=== PATIENT | female | born 1980 | race Caucasian/White ===

== ENCOUNTER → 2018-07-02 11:34 | Outpatient (CLI) | payer OTHER, SELFPAY ==
[2018-07-02 12:39] LABS: Free T3 2.7 pg/mL (2.18-3.98); T4 Free Direct 1.11 ng/dL (0.76-1.46); Thyroid Stim Hormone (TSH) 1.18 uIU/mL (0.358-3.74)
== END ==
LOC: LAB 11:36
PROVIDERS: Family Provider Family Medicine; PCP Family Medicine; Visit Provider Nurse Practitioner
DX: O99.280 Endocrine, nutritional and metabolic diseases complicating pregnancy, unspecified trimester (principal); E03.9 Hypothyroidism, unspecified; O24.419 Gestational diabetes mellitus in pregnancy, unspecified control; Z3A.00 Weeks of gestation of pregnancy not specified
CPT/HCPCS: 36415; 84439; 84443; 84481

== ENCOUNTER → 2018-07-04 08:44 | Outpatient (CLI) | payer OTHER, SELFPAY | LOC: US 08:44 | PROVIDERS: Visit Provider Nurse Practitioner | DX: O24.419 Gestational diabetes mellitus in pregnancy, unspecified control (principal); O99.280 Endocrine, nutritional and metabolic diseases complicating pregnancy, unspecified trimester; E03.9 Hypothyroidism, unspecified; E04.1 Nontoxic single thyroid nodule; Z3A.00 Weeks of gestation of pregnancy not specified | CPT/HCPCS: 76536 ==

== ENCOUNTER → 2018-07-18 13:53 | Outpatient (CLI) | payer OTHER, SELFPAY ==
[2018-07-18 15:36] LABS: Hemoglobin A1c 5.7 % (4.2-6.3)
== END ==
PROVIDERS: Visit Provider Nurse Practitioner
DX: Z86.32 Personal history of gestational diabetes (principal)
CPT/HCPCS: 36415; 83036

== ENCOUNTER → 2018-08-09 06:33 | Outpatient (CLI) | payer OTHER, SELFPAY ==
--- NOTE | 2018-08-09 08:25 | ASPS_PTH ---
PATIENT: MAYELIN QUINTANA LOC: [facility]#:[id number] AGE/SX: 45/F ROOM: RE08/09/[address]: Dr. Farhat Day MD : 1980 BED: DIS: SPEC #: [id number] RECD: 08/09/18 12:09 STATUS: KEVIN SIMPSON #: [id number] POONAM: 08/09/18 08:[address]: Farhat Day DEPT: CYTOLOGY RECD BY: Ginette Aguayo ENTERED: 08/11/18 11:25 SP TYPE: ASPIRATION OTHR DR: No Primary Care Phys Tissues: Thyroid gland, NOS Procedures: Pap Stain (control) Special Stain Group II Cytology Other HEADER OPERATION: Fine needle aspiration of right thyroid PRE-OP DIAGNOSIS: Multinodular goiter (nontoxic) E04.2 TISSUE SUBMITTED: Right thyroid 12 slides DIAGNOSIS CYTOLOGY Fine needle aspiration, right thyroid nodule (smears): Adequate for evaluation. 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 AM:wale 08/12/18 CYTOLOGY STUDY Slides are reviewed. CYTOLOGY GROSS Received are 12 smears labeled with the patient's name and designated per the requisition as right thyroid. Submitted for staining. / 08/11/18 TC:3 CPT: 75656
== END ==
PROVIDERS: Referring Provider Surgery; Visit Provider Surgery
DX: E04.2 Nontoxic multinodular goiter (principal)
CPT/HCPCS: 88161; 88313

== ENCOUNTER → 2018-09-08 10:25 | Outpatient (CLI) | payer OTHER, SELFPAY ==
[2018-09-08 12:00] LABS: Free T3 2.7 pg/mL (2.18-3.98); T4 Free Direct 1.18 ng/dL (0.76-1.46); Thyroid Stim Hormone (TSH) 2.06 uIU/mL (0.358-3.74)
== END ==
PROVIDERS: Referring Provider Nurse Practitioner; Visit Provider Nurse Practitioner
DX: E04.2 Nontoxic multinodular goiter (principal)
CPT/HCPCS: 36415; 84439; 84443; 84481

== ENCOUNTER → 2018-10-10 13:32 | Outpatient (CLI) | payer OTHER, SELFPAY ==
[2018-07-28 13:56] VITALS: BMI 43.7
[2018-09-04 05:53] VITALS: BP 136/73; PULSE 76; RESP 14; TEMP 36.6; O2SAT 100; BMI 30.8
[2018-09-04 05:54] LABS: Internal QC Validated? YES +Cl - CLEAR BKGD
[2018-09-04 05:55] LABS: Pregnancy, Urine Positive Negative
[2018-09-04 06:56] LABS: hCG Titer Quant., Serum 3063 mIU/mL (<9 non-preg)
== END ==
PROVIDERS: Anesthesiology; Referring Provider Surgery; Visit Provider Surgery
DX: Z01.818 Encounter for other preprocedural examination (principal)
CPT/HCPCS: 81025; 84702; J7120

== ENCOUNTER → 2019-09-11 12:38 | Outpatient (CLI) | payer OTHER, SELFPAY ==
--- NOTE | 2019-07-16 03:43 | HP_ITS ---
Intake Vital Signs 07/16/19 Body Mass Index (BMI) 30.8 07/16/19 Height 5 ft 8 in 07/16/19 Weight: 249 lb 1.957 oz 07/16/19 Body Mass Index (BMI) 37.8 07/16/19 Blood Pressure 104/71 07/16/19 Blood Pressure Location Rt brachial 07/16/19 Blood Pressure Position Sitting 07/16/19 Respiratory Rate 16 07/16/19 Pulse Rate 69 07/16/19 Pulse Source Monitor 07/16/19 Temperature 97.9 F 07/16/19 Temperature Source Oral 07/16/19 Pulse Ox 96 07/16/19 Oxygen Delivery Method room air Intake Visit Reasons: Update H & P/Schedule Thyroid SX [employer] Coordinator Required: No Is patient in pain?: No Allergies adhesive tape Allergy (Intermediate, Verified 07/16/19 14:09) red rash povidone-iodine [From Betadine] Allergy (Unknown, Verified 07/16/19 14:09) Unknown soap [From Betadine] Allergy (Unknown, Verified 07/16/19 14:09) Unknown Medications Levothyroxine Sodium [Synthroid] 50 mcg PO QHS 08/28/18 [History Confirmed 07/16/19] vitamin,calcium,rgezadpg-aswn-nvsen acid tablet 1 tab PO DAILY 07/16/19 [History Confirmed 07/16/19] PFSH Medical History Chronic lymphocytic thyroiditis (Acute) atypical follicular cells thyroid (Acute) Hypothyroidism (Acute) Polycystic ovarian disease (Acute) Gestational diabetes mellitus (GDM) (Inactive) Hypothyroidism (acquired) (Chronic) Surgical History Hx of cholecystectomy (Acute) Social History (Updated 07/16/19 @ 15:43 by Keena Capone PA-C) adopted: Yes Smoking Status: Never smoker alcohol intake: never substance use type: does not use caffeine: Yes what type of physical activity do you participate in: walking frequency: other details: as much as possible HPI HPI HPI: MAYELIN QUINTANA, is a 39 F who presents to the office today for HPI HPI Surgical H&P: Yes HPI: MAYELIN QUINTANA, is a 39 F who presents to the office today for an updating history and physical for an upcoming surgical procedure. Patient denies recent illnesses. Patient was scheduled for her surgical procedure and to cancel the day of because she was found to be . Patient is currently breast feeding. Patient denies previous myocardial infarction, stroke or blood clots. Patient denies previous complications with anesthesia. ROS General General: No weight change, appetite, fatigue, colon cancer, breast cancer or weakness HEENT HEENT: No difficulty swallowing, eye injury, eye surgery, swollen glands or hoarseness Endo Endocrine: Yes thyroid disease; no diabetes mellitus (Gestational DM with past ), thyroid cancer, Hair loss, heat intolerance or cold intolerance Skin Skin: No rash or changing moles Musc Musculoskeletal: No back problems, arthritis, rheumatoid arthritis, gout or joint pain Cardio Cardiovascular: No murmur, pacemaker, heart disease, atrial fibrillation, high blood pressure, heart attack, heart stent, palpitations, shortness of breat with exertion or chest pain Psych Psychiatric: No depression, anxiety or hearing voices Resp Respiratory: No shortness of breath, No sleep apnea, No cough, No COPD, No asthma, No emphysema, No wheezing Gastro Gastrointestinal: No abdominal pain, No nausea or vomiting, No diarrhea, No constipation, No blood in stool, No acid reflux, No hemorrhoids, No ulcers, No gallbladder problem (S/p Cholecystectomy), No black,tarry stools Vicente Hematologic: No blood thinners, No blood disorders, No bleeding, No anemia, No blood clots Neuro Neurologic: No system reviewed and no additional complaints, except as docu, No as per HPI, No abnormal walking, No abnormal hearing, No abnormal movements, No abnormal speech, No behavioral changes, No burning sensations, No confusion, No seizure-like activity, No unsteadiness, No dizziness, No localized weakness, No frequent falls, No headache(s), No lack of coordination, No loss of vision, No memory loss, No numbness, No other visual disturbances, No radiating pain, No restless legs, No sensory deficit, No fainting, No tingling, No tremor(s), No weakness, No other Exam Const General: cooperative, healthy appearing, comfortable, no acute distress HENMT Head: normal to inspection Eyes General: appearance normal, both eyes and all related structures Neck Neck: normal visual inspection Neck mass: No Resp Effort & Inspection: normal respiratory effort Auscultation: clear to auscultation bilaterally Cardio Rate: regular rate Rhythm: regular rhythm Heart Sounds: no murmurs GI Inspection: normal to inspection Palpation: soft Auscultation: normal bowel sounds Skin General: no rashes or lesions noted Neuro General: no focal motor deficits, CN's II-XI intact bilaterally Extrem General: normal to inspection Psych Appearance: grossly normal Affect: normal affect Assessment & Plan Problems 1. Chronic lymphocytic thyroiditis E06.[address] Day will plan to perform a right-sided thyroid lobectomy with possible conversion to total. Procedure details, risks and benefits have been explained to the patient. Patient has had the opportunity to ask and have questions answered. Patient verbally understands and agrees with the plan. Coding Level of Care Code No Charge Diagnoses Chronic lymphocytic thyroiditis E06.3 Comment Update H&P 07/16/19 1543 <Electronically signed by Keena spain PA-C> Date _ Keena Capone PA-C
[2019-07-16 14:23] VITALS: BMI 30.8
[2019-08-12 14:28] VITALS: BMI 30.8
== END ==
PROVIDERS: Referring Provider Surgery; Visit Provider Surgery
DX: Z01.818 Encounter for other preprocedural examination (principal)

== ENCOUNTER → 2020-09-14 11:28 | Outpatient (CLI) | payer OTHER, SELFPAY ==
[2020-06-14 10:07] VITALS: BMI 41.6
[2020-09-14 12:46] LABS: Hemoglobin A1c 5.6 % (3.8-5.6)
[2020-09-14 13:20] LABS: T4 Free Direct 1.27 ng/dL (0.76-1.46); Thyroid Stim Hormone (TSH) 1.01 uIU/mL (0.358-3.74)
== END ==
LOC: BIMLAB 11:29
PROVIDERS: Referring Provider Internal Medicine Endocrinology, Diabetes & Metabolism; Visit Provider Internal Medicine Endocrinology, Diabetes & Metabolism
DX: E03.9 Hypothyroidism, unspecified (principal); R73.09 Other abnormal glucose
CPT/HCPCS: 36415; 83036; 84439; 84443

== ENCOUNTER → 2021-03-10 16:03 | Outpatient (CLI) | payer OTHER, SELFPAY ==
[2020-09-15 08:14] VITALS: BMI 40.6
--- NOTE | 2021-03-10 16:06 | US_ITS ---
STUDY: THYROID ULTRASOUND REASON FOR EXAM: Female, 40 years old. Thyroid nodule. Jermaine''s thyroiditis. TECHNIQUE: Ultrasound evaluation of the thyroid was performed with real-time and static matta-scale imaging. COMPARISON: 07/04/2018. FINDINGS: RIGHT LOBE: The right lobe of the thyroid gland measures 5.5 x 1.8 x 1.7 cm. There is a heterogeneous echotexture. There are no demonstrated solid, cystic or complex lesions. Normal vascularity on DOPPLER imaging. LEFT LOBE: The left lobe of the thyroid gland measures 5.2 x 2.2 x 1.7 cm cm. There is a heterogeneous echotexture. There are no demonstrated solid, cystic or complex lesions. Normal vascularity on DOPPLER imaging. ISTHMUS: The isthmus measures 0.3 cm. The regional lymph nodes are normal. US/Thyroid IMPRESSION: Heterogenous thyroid. The areas described as masses on the prior studies appear to be areas of heterogeneity without distinct mass. Electronically Signed: Shon Atkins DO at 17:15 EDT Tel [phone], Service support ,
== END ==
LOC: US 16:04
PROVIDERS: Referring Provider Internal Medicine Endocrinology, Diabetes & Metabolism; Visit Provider Internal Medicine Endocrinology, Diabetes & Metabolism
DX: E04.1 Nontoxic single thyroid nodule (principal)
CPT/HCPCS: 76536

== ENCOUNTER → 2022-05-18 | Outpatient (CLI) | payer BC, SELFPAY ==
[2022-05-18 12:47] LABS: AST(SGOT) 14 U/L (15-37); Alanine Aminotransfer ALT/SGPT 23 U/L (13-56); Albumin, Serum 3.6 g/dL (3.2-5.0); Alkaline Phosphatase 95 U/L (45-117); Anion Gap 5 (5-15); BUN 9 mg/dL (7-18); BUN/Creat Ratio 14.7 RATIO (10-20); Calcium,Total 8.4 mg/dL (8.5-10.1); Chloride 106 mmol/L (98-107); Cholesterol 140 mg/dL (200); Creatinine, Serum 0.61 mg/dL (0.55-1.02); EST Glomerular Filtration Rate 115 mL/min (>60); Est Glom Filt Rate - Afr Amer 139 mL/min (>60); Globulin 3.7 g/dL (2.2-4.2); Glucose 120 mg/dL (74-106); High Density Lipoprotein 37 mg/dL; Potassium 3.9 mmol/L (3.5-5.1); Protein, Total 7.3 g/dL (6.4-8.2); Sodium Level 139 mmol/L (136-145); T4 Free Direct 1.11 ng/dL (0.76-1.46); Thyroid Stim Hormone (TSH) 2.18 uIU/mL (0.358-3.74); Triglycerides 89 mg/dL; Very Low Density Lipoprotein 18 mg/dL (5-40)
== END | disposition home or self-care (01) ==
LOC: BIMLAB 09:08
PROVIDERS: Referring Provider Internal Medicine Endocrinology, Diabetes & Metabolism; Visit Provider Internal Medicine Endocrinology, Diabetes & Metabolism
DX: E03.9 Hypothyroidism, unspecified (principal); E28.2 Polycystic ovarian syndrome; E06.3 Autoimmune thyroiditis
CPT/HCPCS: 36415; 80053; 80061; 83036; 84439; 84443

== ENCOUNTER → 2023-06-28 | Outpatient (CLI) | payer BC, SELFPAY ==
[2023-06-28 10:20] LABS: Basophil# 0.07 X10^3/uL; Basophil% 0.8 % (0-1); Eosinophil# 0.62 X10^3/uL; Eosinophils% 7.2 % (0-5); Hematocrit 45.4 % (37-47); Hemoglobin 14.4 g/dL (12.0-15.0); Lymphocyte % 26.8 % (19-41); Mean Corp Hgb Conc 31.7 g/dL (32-36); Mean Corpuscular Hgb 25.7 pg (27.0-32.0); Mean Corpuscular Volume 80.9 fL (81-99); Mean Platelet Vol. 10.1 fl (6.2-12.0); Monocyte# 0.55 X10^3/uL; Monocyte% 6.4 % (0-10); NRBC Flagged by Analyzer 0 % (0-5); Neutrophil # 5.02 X10^3/uL (2.7-7.7); Neutrophil % 58.5 % (47-70); Platelet Count 342 K/mm3 (150-450); RBC Distribution Width CV 14.1 % (11.6-14.6); RBC Distribution Width SD 41.3 fl (35.1-43.9); Red Blood Count 5.61 M/mm3 (4.2-5.4); White Blood Count 8.6 K/mm3 (4.4-11.0)
[2023-06-28 11:03] LABS: ALB/GLOB Ratio 1.1 RATIO (0.9-2.4); AST(SGOT) 12 U/L (15-37); Alanine Aminotransfer ALT/SGPT 22 U/L (13-56); Albumin, Serum 4.1 g/dL (3.2-5.0); Alkaline Phosphatase 90 U/L (45-117); Anion Gap 6 (5-15); BUN 11 mg/dL (7-18); Calcium,Total 8.9 mg/dL (8.5-10.1); Chloride 106 mmol/L (98-107); Cholesterol 138 mg/dL (200); Creatinine, Serum 0.61 mg/dL (0.55-1.02); EST Glomerular Filtration Rate 115 mL/min (>60); Est Glom Filt Rate - Afr Amer 139 mL/min (>60); Globulin 3.8 g/dL (2.2-4.2); Glucose 90 mg/dL (74-106); High Density Lipoprotein 41 mg/dL; Protein, Total 7.9 g/dL (6.4-8.2); Sodium Level 139 mmol/L (136-145); T4 Free Direct 1.33 ng/dL (0.76-1.46); Thyroid Stim Hormone (TSH) 1.35 uIU/mL (0.358-3.74); Triglycerides 82 mg/dL; Very Low Density Lipoprotein 16 mg/dL (5-40)
== END | disposition home or self-care (01) ==
LOC: LAB 09:48
PROVIDERS: PCP Internal Medicine; Referring Provider Internal Medicine Endocrinology, Diabetes & Metabolism; Visit Provider Internal Medicine Endocrinology, Diabetes & Metabolism
DX: E03.9 Hypothyroidism, unspecified (principal); E11.9 Type 2 diabetes mellitus without complications; E66.9 Obesity, unspecified
CPT/HCPCS: 36415; 80053; 80061; 84439; 84443; 85025

== ENCOUNTER → 2024-08-20 | Outpatient (CLI) | payer BC, SELFPAY ==
[2024-08-21 11:03] LABS: Vitamin D,25 Hydroxy 20.6 ng/mL
== END | disposition home or self-care (01) ==
LOC: BIMLAB 10:29
PROVIDERS: PCP Internal Medicine; Referring Provider Internal Medicine; Visit Provider Internal Medicine
DX: E03.9 Hypothyroidism, unspecified (principal); E55.9 Vitamin D deficiency, unspecified
CPT/HCPCS: 36415; 82306; 84443

== ENCOUNTER → 2025-08-27 | Outpatient (CLI) | payer BC, SELFPAY ==
[2025-08-27 10:02] LABS: Hematocrit 40.9 % (37-47); Hemoglobin 13.6 g/dL (12.0-15.0); Immature Granulocytes Count 0.020 X10^3/uL (0.0-0.0); Mean Corp Hgb Conc 33.3 g/dL (32-36); Mean Corpuscular Volume 82.0 fL (81-99); Mean Platelet Vol. 9.7 fl (6.2-12.0); NRBC Flagged by Analyzer 0 % (0-5); Platelet Count 285 K/mm3 (150-450); RBC Distribution Width CV 13.8 % (11.6-14.6); RBC Distribution Width SD 40.7 fl (35.1-43.9); Red Blood Count 4.99 M/mm3 (4.2-5.4); White Blood Count 6.8 K/mm3 (4.4-11.0)
--- OUTSIDE RECORDS SUMMARY | 2025-08-27 10:14 | XMS RPT_ITS | CCD ---
Author Organization [facility] Care Team Providers Care Wheel Assembler Name Role Phone Unavailable Primary Care Provider Unavailabl e Dr. Edil Dean Primary Care Provider Dr. Edil Dean Referring Provider [phone] FLAVIO Hlil Attending Provider [phone] Edil Dean MD Primary Care Provider EDIL DEAN Primary Care Unavailable NICOL GARCIA DO Primary Care Physician ALYSE STEIN Attending Unavail able RADHA DO NICOL R Primary Care Unavailable ALYSE STEIN Attending Unavail able NICOL GARCIA DO R Primary Care Unavailable Dr. Edil Dean MD Primary Care Provider [phone] Dr. Edil Dean MD Referring Provider Ton Ware Attending Provider [phone] Ton Ware Attending Unavailable Edil Dean Primary Care Unavailable Edil Dean Referring Unavailable Olga Quintanilla Attending Unavailable Edil Dean Primary Care Unavailable Edil Dean Referring Unavailable Allergies Allergy Classification Reported Allergen(s) Allergy Type Date of Onset Reaction(s) Facility (4 sources) Adhesive Tape; Translations: [adhesive tape] Allergy to substance 09-15-2020 [facility] (8 sources) Povidone-Iodine; Translations: [POVIDONE-IODINE ] Drug Allergy 07-27-2019 [facility] Work Phone: Comment on above: skin broke out in hi ves as soon as applied for preop scrub (6 sources) raspberry extract; Translations: [RASPBERRY] Drug Allergy 07-27-2019 [facility] Work Phone: (4 sources) soap; Translations: [soap] Allergy to substance 09-15-2020 Unknown [facility] (3 sources) Aloe Extract; Translations: [ALOE] Drug Allergy 07-27-2019 [facility] Work Phone: (2 sources) aloe vera topical; Translations: [aloe vera topical] Allergy to substance red rash [facility] (2 sources) Raspberries 2 Food allergy [facility] Comment on above: hives (1 source) Povidone-Iodine Drug Allergy 08-24-2025 [facility] Repository (1 source) raspberry extract Drug Allergy 08-24-2025 [facility] Repository Medications Current Medications Medication Drug Class(es) Dates Sig (Normalized) Sig (Original) calcium carbonate 1500 mg oral tablet (3 sources) Start: 08-06-2019 take 1 tablet by mouth once daily Calcium Carbonate 600 MG tablet Active 600 mg PO DAILY August 06, 2019 12:00am Calcium Carbonate / vitamin D3 (2 sources) CALCIUM CARBONATE/VITAMIN D3 (CALCIUM CHEWABLE PLUS ORAL) Take 1,200 mg by mouth. Active CALCIUM CARBONAT E/VITAMIN D3 (CALCIUM CHEWABLE PLUS ORAL) Take 1,200 mg by mouth. 0 Active Comment on above: Take 1,200 mg by jackson . cholecalciferol 0.025 mg oral tablet (7 sources) Vitamin D Start: 09-17-20 22 take 1 tablet by mouth once daily Cholecalciferol (Vitamin D3) 25 mcg (1,000 unit) tablet Active 25 ug PO DAILY September 17, 2022 1:00am Start: 08-06-2019 End: 09-17-2022 take 1 capsule by mouth once daily Cholecalciferol (Vitamin D3) 1,000 UNIT capsule Discontinued 1000 U PO DAILY August 06, 2019 12:00am September 17, 2022 10:49am Comment on above: Take 1,000 Units by mouth once daily. doxycycline hyclate 100 mg oral tablet (1 source) Tetracycline-cla ss Drug Start: 4 End: 4 take 1 tablet by mouth twice daily doxycycline (VIBRA-TABS) 100 mg tablet Take 1 tablet by mouth two times a day for 7 days. 14 tablet 08/31/2024 09/07/2024 Active levothyroxine (20 sources) l-Thyroxine Start: 5 take 1 dose by mouth once daily levothyroxine Dose : 137 mcg =, Oral, qDay, 0 Refill(s) Start Date: 03/04/25 Status: Ordered Repeat number: 1 Start: 06-14-2020 End: 08-06-2023 take 1 tablet by mouth once daily Levothyroxine 137 mcg tablet Active 137 ug PO DAILY 90 August 06, 2023 9:48am Start: 04-17-2017 End: 06-14-2020 take 1 tablet by mouth at bedtime Levothyroxine 50 MCG tablet Discontinued 50 ug PO AT BEDTIME August 28, 2018 3:18pm June 14, 2020 9:46am Comment on above: Take 1 tablet by jackson th once daily. KYLE TAKE 1 TABLET EVERY DAY Take 1 tablet by jackson th once daily. MOUNJARO 15 mg/0.5 mL pen injector (1 source) Start: 08-25-20 24 inject 15 mg by subcutaneous injection every week MOUNJARO 15 mg/0.5 mL pen injector INJECT 15 MG (0.5 ML) SUBCUTANEOUSLY EVERY WEEK 08/25/2024 Active Multivitamin (Daily Multi-Vitamin) tablet (2 sources) Start: 09-17-20 22 Multivitamin (Daily Multi-Vitamin) tablet Active 1 {tbl} PO DAILY September 17, 2022 1:00am Start: 09-17-2022 take 1 tablet by jackson th once daily Multivitamin (Daily Multi-Vitamin) tablet Active 1 TABLET PO DAILY September 17, 2022 1:00am multivitamin, (2 sources) Start: 04-07-2019 take 1 tablet by mouth once daily multivitamin, Dose = 1 tab(s), Oral, Daily, 0 Refill(s) Start Date: 04/07/19 Status: Ordered Repeat number: 1 MV-MN/IRON FUM/FA/OMEGA3,6,9#3 (WOMEN'S MULTI ORAL) (2 sources) MV-MN/IRON FUM/FA/OMEGA3,6,9#3 (WOMEN'S MULTI ORAL) Take by mouth once daily. Active MV-MN/IRON FUM/F A/OMEGA3,6,9#3 (WOMEN'S MULTI ORAL) Take by mouth once daily. 0 Active Comment on above: Take by mouth once d aily. progesterone 100 mg oral capsule (2 sources) Progesterone Start: progesterone 100 mg oral capsule Dose : 100 mg = 1 cap(s), Oral, qHS, # 30 cap(s), 1 Refill(s), Pharmacy: [facility]/pharmacy #[id number], Secondary amenorrhea Unsure of LMP (last menstrual period) as reason for ultrasound scan, 172.5, cm, 03/04/25 11:09:00 EDT, Height Start Date: 03/04/25 Status: Ordered Quantity: 30.0 Unit: cap(s) Repeat number: 2 Indications: Secondary amenorrhea; Encounter for screening for uncertain dates; sulfamethoxazole 800 mg / trimethoprim 160 mg oral tablet (1 source) Dihydrofolate Reductase Inhibitor Antibacterial, Sulfonamide Antimicrobial Start: End: take 1 tablet by mouth twice daily sulfamethoxazole-tri methoprim (BACTRIM DS) 800-160 mg per tablet Take 1 tablet by mouth twice daily for 7 days. 14 tablet 0 07/27/2022 08/03/2022 Active Comment on above: Take 1 tablet by jackson twice daily for 7 days. Tirzepatide (Mounjaro) 12.5 mg/0.5 mL pen injector (4 sources) Start: Tirzepatide (Mounjaro) 12.5 mg/0.5 mL pen injector Active 12.5 mg SC EVERY WEEK 2 May 12, 2025 12:58pm Diabetes mellitus Type 2 diabetes mellitus without complications Start: 08-20-2024 End: 05-12-2025 Tirzepatide (Mounjaro) 12.5 mg/0.5 mL pen injector Discontinued 12.5 mg SC EVERY WEEK 2 August 20, 2024 10:33am May 12, 2025 12:59pm Diabetes mellitus Type 2 diabetes mellitus without complications Start: 01-01-2024 End: 08-20-2024 Tirzepatide (Mounjaro) 12.5 mg/0.5 mL pen injector Discontinued 12.5 mg SC EVERY WEEK 2 3 January 01, 2024 1:00am August 20, 2024 10:33am Diabetes mellitus Type 2 diabetes mellitus without complications Start: 08-06-2023 End: 12-09-2023 Tirzepatide (Mounjaro) 12.5 mg/0.5 mL pen injector Discontinued 12.5 mg SC EVERY WEEK 6 3 August 06, 2023 12:00am December 09, 2023 9:06am Vitamin D and K oral tablet (2 sources) Start: 03-04-2025 take 1 tablet by mouth once Vitamin D and K oral tablet 0 Refill(s) Start Date: 03/04/25 Status: Ordered Repeat number: 1 Completed/Discontinued Medications Medication Drug Class(es) Dates Sig (Normalized) Sig (Original) Dulaglutide (12 sources) GLP-1 Receptor Agonist Start: 01-07-2023 End: 03-25-2023 Dulaglutide (Trulicity) 4.5 mg/0.5 mL pen injector Discontinued 4.5 mg SC EVERY WEEK 6 1 January 07, 2023 1:00am March 25, 2023 8:02am Start: 01-07-2023 End: 03-25-2023 Dulaglutide (Trulicity) 4.5 mg/0.5 mL pen injector Discontinued 4.5 MG SC EVERY WEEK 6 January 07, 2023 1:00am March 25, 2023 8:02am Start: 11-30-2022 End: 01-07-2023 Dulaglutide (Trulicity) 3 mg /0.5 mL pen injector Discontinued 3 mg SC EVERY WEEK 2 3 November 30, 2022 12:08pm January 07, 2023 11:13am Start: 11-30-2022 End: 01-07-2023 Dulaglutide (Trulicity) 3 mg /0.5 mL pen injector Discontinued 3 MG SC EVERY WEEK 2 November 30, 2022 12:08pm January 07, 2023 11:13am Start: 09-21-2022 End: 11-30-2022 Dulaglutide (Trulicity) 3 mg /0.5 mL pen injector Discontinued 3 mg SC EVERY WEEK 2 3 September 21, 2022 1:00am November 30, 2022 12:08pm Start: 09-21-2022 End: 11-30-2022 Dulaglutide (Trulicity) 3 mg /0.5 mL pen injector Discontinued 3 MG SC EVERY WEEK 2 September 21, 2022 1:00am November 30, 2022 12:08pm Start: 07-27-2022 End: 09-21-2022 Dulaglutide (Trulicity) 1.5 mg/0.5 mL pen injector Discontinued 1.5 mg SC EVERY WEEK 2 3 July 27, 2022 12:00am September 21, 2022 4:55pm Start: 07-05-2022 End: 07-27-2022 Dulaglutide (Trulicity) 0.75 mg/0.5 mL pen injector Discontinued 0.75 mg SC EVERY WEEK 2 3 July 05, 2022 12:00am July 27, 2022 1:35pm Recent onset of diabetes mellitus Obesity Type 2 diabetes mellitus without complications Morbid (severe) obesity due to excess calories Body mass index [BMI] 40.0-44.9, adult Comment on above: INJECT 0.75 MG (0.5 ML) SUBCUTANEOUSLY EVERY WEEK metFORMIN hydrochloride 1000 mg oral tablet (10 sources) Biguanide Start: 07-02-20 End: 01-08-20 take 1 tablet by mouth once daily Metformin 1,000 mg tablet Discontinued 1000 mg PO DAILY 30 2022 2:50pm January 07, 2023 11:15am Start: 06-16-2020 End: 2022 take 1 tablet by mouth twice daily Metformin 1,000 mg tablet Discontinued 1000 mg PO TWICE A DAY 60 0 August 31, 2021 8:29am 2022 2:51pm Comment on above: 1000 MG ORALLY DAILY Prenat.Vits,Juan,Mi k-Avrs-Qkewm (2 sources) Start: 07-16-2019 End: 09-17-2022 take 1 tablet by mouth once daily Prenat.Vits,Juan,Min-Ir on-Folic Discontinued 1 TABLET PO DAILY July 16, 2019 12:00am September 17, 2022 10:53am Start: 07-16-2019 take 1 tablet by jackson th once daily Prenat.Vits,Juan,Tie-Wotf-Pbkxe Active 1 TABLET PO DAILY July 16, 2019 12:00am Prenat.Vits,Juan,Wdk-Qvrr-Cby ic tablet (1 source) Start: 07-16-2019 End: 09-17-2022 Prenat.Vits,Juan,Aka-Mnpx-Isv ic tablet Discontinued 1 {tbl} PO DAILY July 16, 2019 12:00am September 17, 2022 10:53am Tirzepatide (Mounjaro) 10 mg /0.5 mL pen injector (4 sources) Start: 04-24-2023 End: 04-25-2023 Tirzepatide (Mounjaro) 10 mg /0.5 mL pen injector Discontinued 10 mg SC EVERY WEEK 2 3 April 24, 2023 12:30pm April 25, 2023 3:59pm Recent onset of diabetes mellitus Type 2 diabetes mellitus without complications Start: 04-24-2023 End: 04-25-2023 Tirzepatide (Mounjaro) 10 mg /0.5 mL pen injector Discontinued 10 MG SC EVERY WEEK 2 April 24, 2023 12:30pm April 25, 2023 3:59pm Start: 03-25-2023 End: 04-24-2023 Tirzepatide (Mounjaro) 10 mg /0.5 mL pen injector Discontinued 10 mg SC EVERY WEEK 2 3 March 25, 2023 12:00am April 24, 2023 12:30pm Recent onset of diabetes mellitus Type 2 diabetes mellitus without complications Start: 03-25-2023 End: 04-24-2023 Tirzepatide (Mounjaro) 10 mg /0.5 mL pen injector Discontinued 10 MG SC EVERY WEEK 2 March 25, 2023 12:00am April 24, 2023 12:30pm Tirzepatide (Mounjaro) 15 mg/0.5 mL pen injector (2 sources) Start: 12-12-2023 End: 08-20-2024 Tirzepatide (Mounjaro) 15 mg /0.5 mL pen injector Discontinued 15 mg SC EVERY WEEK 6 3 December 12, 2023 4:09pm August 20, 2024 10:33am Diabetes mellitus Type 2 diabetes mellitus without complications Start: 12-09-2023 End: 12-12-2023 Tirzepatide (Mounjaro) 15 mg /0.5 mL pen injector Discontinued 15 mg SC EVERY WEEK 6 3 December 09, 2023 1:00am December 12, 2023 4:09pm Diabetes mellitus Type 2 diabetes mellitus without complications Tirzepatide (Mounjaro) 2.5 mg/0.5 mL pen injector (2 sources) Start: 2022 End: 07-05-2022 Tirzepatide (Mounjaro) 2.5 mg/0.5 mL pen injector Discontinued 2.5 mg SC EVERY WEEK 2 01 12July 02, 2022 12:00am July 05, 2022 9:34am Start: 2022 End: 07-05-2022 Tirzepatide (Mounjaro) 2.5 m g/0.5 mL pen injector Discontinued 2.5 MG SC EVERY WEEK 2 2022 12:00am July 05, 2022 9:34am Tirzepatide (Mounjaro) 7.5 mg/0.5 mL pen injector (3 sources) Start: 12-30-2023 End: 08-20-2024 Tirzepatide (Mounjaro) 7.5 mg/0.5 mL pen injector Discontinued 7.5 mg SC EVERY WEEK 2 December 30, 2023 1:00am August 20, 2024 10:06am Start: 04-25-2023 End: 08-06-2023 Tirzepatide (Mounjaro) 7.5 m g/0.5 mL pen injector Discontinued 7.5 mg SC EVERY WEEK 2 5 April 25, 2023 12:00am August 06, 2023 9:57am Start: 04-25-2023 Tirzepatide (M ounjaro) 7.5 mg/0.5 mL pen injector Active 7.5 MG SC EVERY WEEK 2 April 25, 2023 12:00am Problems Active Problems Problem Classification Problem Date Documented Da te Episodic/Chronic Administrative/social admission (3 sources) Patient encounter status; Translations: [Encounter for pre-employment examination] 10-09-2022 Episodic Diabetes mellitus without complication (5 sources) Newly diagnosed diabetes; Translations: [Type 2 diabetes mellitus without complications] Onset: 05-12-2025 06-20-2020 Chronic Diabetes mellitus without complication (3 sources) Prediabetes; Translations: [Prediabetes] 09-13-2022 Episodic Diabetes or abnormal glucose tolerance complicating ; childbirth; or the puerperium (11 sources) Gestational diabetes mellitus; Translations: [Gestational diabetes mellitus in , unspecified control] Onset: 11-01-2016 11-01-2016 Episodic Menstrual disorders (2 sources) Secondary amenorrhea; Translations: [Secondary amenorrhea] Onset: 03-04-2025 Chronic Nutritional deficiencies (3 sources) Vitamin D deficiency; Translations: [Vitamin D deficiency, unspecified] Onset: 05-12-2025 05-12-2025 Chronic Other complications of (1 source) Thyroid dysfunction during - baby not yet delivered; Translations: [Endocrine, nutritional and metabolic diseases complicating , unspecified trimester] 04-10-2016 Episodic Other complications of (1 source) Thyroid dysfunction during , childbirth and the puerperium; Translations: [Endocrine, nutritional and metabolic diseases complicating , unspecified trimester] 04-10-2016 Episodic Other endocrine disorders (3 sources) Polycystic ovary; Translations: [Polycystic ovarian syndrome] 07-16-2019 Chronic Other endocrine disorders (2 sources) Polycystic ovary syndrome; Translations: [Polycystic ovarian syndrome] 11-01-2016 Chronic Other nutritional; endocrine; and metabolic disorders (2 sources) Body mass index 30+ - obesity; Translations: [Body mass index (BMI) 38.0-38.9, adult] 11-01-2016 Chronic Other nutritional; endocrine; and metabolic disorders (2 sources) Obesity; Translations: [Obesity, unspecified] 01-07-2023 Chronic Other nutritional; endocrine; and metabolic disorders (1 source) Other obesity due to excess calories; Translations: [Other obesity due to excess calories] Onset: 05-12-2025 Chronic Other nutritional; endocrine; and metabolic disorders (1 source) Body mass index (BMI) 34.0-34.9, adult; Translations: [Body mass index [BMI] 34.0-34.9, adult] Onset: 05-12-2025 Chronic Other and delivery including normal (2 sources) Onset: 03-04-2025 03-04-2025 Episodic Comment on above: unsure of LMP, think s possibly at beginning of January. Other screening for suspected conditions (not mental disorders or infectious disease) (3 sources) Encounter for screening for uncertain dates; Translations: [Encounter for other screening for malignant neoplasm of breast] Onset: 03-04-2025 Episodic Other upper respiratory infections (1 source) Bacterial sinusitis; Translations: [Chronic sinusitis, unspecified] 08-31-2024 Chronic Skin and subcutaneous tissue infections (1 source) Cellulitis of right upper limb; Translations: [Cellulitis of right upper limb] Episodic Thyroid disorders (18 sources) Thyroid nodule; Translations: [Nontoxic single thyroid nodule] Onset: 05-12-2025 04-10-2016 Chronic Comment on above: Jermaine's Unclassified (2 sources) Breast feeding (infant) (observable entity) 04-28-2019 Comment on above: System added from do cumentation. Breast feeding Status documented as Yes on Admission Past or Other Problems Problem Classification Problem Date Documented Da te Episodic/Chronic Biliary tract disease (2 sources) Biliary calculus Onset: 01-18-2015 01-26-2015 Episodic Unclassified (3 sources) atypical follicular cells thyroid 06-02-2022 Results Test Name Value Interpretation Reference Range Facility Internal Medicine Office Vis ito 08-24-2025 Internal Medicine Office Visit [facility] Internal [facility] [address] [place] [address] [place] [address] OFFICE VISIT Date of Service: 08/24/25 MR#: [id number] Acct: [id number] Name: MIKEY OAKES Rep #: [id number] : 1980 Provider: LATISHA tena Age/Sex: 45/F Location: [facility] Status: Signed Intake Vital Signs 05/12/25 12:37 08/24/25 10:04 Height 5 ft 8 in 5 ft 8 in Weight: 199 lb 2 oz 196 lb BMI 30.2 29.7 BP 126/78 H 106/68 Blood Pressure Location Lt brachial Lt brachial Position Sitting Sitting Respiration 16 16 Pulse 70 69 Pulse Source Monitor Monitor Temp 97.2 F L 98.9 F Temp Source Temporal Temporal Pulse Oximetry (%) 99 99 Oxygen Delivery Method room air room air Intake Visit Reasons: Annual Chief Complaint: fu Stamp Presser Required: No Is patient in pain?: No Allergies adhesive tape Allergy (Intermediate, Verified 08/24/25 09:49) red rash raspberry Allergy (Intermediate, Verified 08/24/25 09:49) Hives povidone-iodine (From Betadine) Allergy (Unknown, Verified 08/24/25 09:49) Unknown Medications ???Medication ???Instructions ???Recorded ???Confirmed ???Type calcium carbonate 600 mg PO DAILY 08/06/19 08/24/25 History multivitamin (Daily Multi-Vitamin 1 tab PO DAILY 09/17/22 08/24/25 History tablet) levothyroxine 137 mcg tablet 137 mcg PO DAILY #90 tabs 08/06/23 08/24/25 Rx cholecalciferol (vitamin D3) 25 5,000 unit PO DAILY 08/24/2508/24 History mcg (1,000 unit) tablet tirzepatide 12.5 mg/0.5 mL 12.5 mg (0.5 mL) subcut QWEEK 90 1 08/24/25 Rx subcutaneous pen injector days #6 mL (Mounjaro) Have you fallen in the past year?: No Nurse's Note: Pt needs synthroid and mounjaro refilled. Requested 90 days. Pt will wait closer to september to get flu shot. 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 Gestational diabetes mellitus (GDM) Hypothyroidism (acquired) Polycystic ovarian disease Surgical History (Updated 08/24/25 @ 10:00 by Roshni Junior MA) Normal Pap smear H/O wisdom tooth extraction Hx of cholecystectomy Family History (Updated 08/24/25 @ 10:01 by Roshni Junior MA) Other Adopted Social History (Updated 08/24/25 @ 10:03 by Roshni Junior MA) adopted: Yes household members: spouse and children number of children: 3 current occupational status: employed 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 She is due for some routine blood work and screening. She states she will have bloodwork completed tomorrow. She plans to get the flu shot next month, and isn't due for any further immunizations. She doesn't smoke and needs refills today. She reports she is eating healthy and is trying to stay active. She was previously following with endocrinology for her thyroid and diabetes, but these are now managed by primary care.. She has been taking her medication as prescribed without any problems. She is trying to monitor her carbohydrate and sugar intake. The patient doesn't monitor her sugars at home regularly. Her last A1c was 5.3. She states she is taking her Mounjaro without any adverse effects. States she has lost approximately 100 pounds while taking this medication. The patient takes her thyroid medication first thing in the morning before anything else. She denies any palpitations or feelings of fatigue at this time. She states she feels best when her TSH is around 1. She has no further concerns or questions at this time ROS Const Constitutional: No body ache, chills, excessive sweating, fatigue, fever(s), frequent falls, headache(s), snoring, weakness, sleep problems or change in appetite Eyes Eyes: No blurry vision, change in vision, eye pain or Light sensitivity ENT ENT: No abnormal hearing, ear or mastoid pain, tinnitus, nasal congestion, headache(s), neck pain or sore throat Resp Respiratory: No cough, shortness of breath, snoring or wheezing Cardio Cardiology: No chest pain at rest, chest pain with exertion, excessive sweating, shortness of breath, dyspnea on exertion, lightheadedness, orthopnea or palpitations Gastro GI: No abdominal pain, change in (more content not included)... Normal [facility] Internal Medicine Office Vis anderson 05-12-2025 Internal Medicine Office Visit [place] [facility] [place] [address] [place] [address] OFFICE VISIT Date of Service: 05/12/25 MR#: [id number] Acct: [id number] Name: MIKEY OAKES Rep #: [id number] : 1980 Provider: FLAVIO Grossman Age/Sex: 44/F Location: [facility] Status: Signed Intake Vital Signs 08/20/24 10:01 05/12/25 12:37 Height 5 ft 8 in 5 ft 8 in Weight: 214 lb 199 lb 2 oz BMI 32.5 30.2 BP 110/68 126/78 H Blood Pressure Location Lt brachial Lt brachial Position Sitting Sitting Respiration 14 16 Pulse 71 70 Pulse Source Monitor Monitor Temp 98.1 F 97.2 F L Temp Source Temporal Temporal Pulse Oximetry (%) 99 99 Oxygen Delivery Method room air room air Intake Visit Reasons: MED FOLLOW UP Chief Complaint: fu Stamp Presser Required: No Accompanied by: Self Is patient in pain?: No Allergies adhesive tape Allergy (Intermediate, Verified 05/12/25 12:30) red rash raspberry Allergy (Intermediate, Verified 05/12/25 12:30) Hives povidone-iodine (From Betadine) Allergy (Unknown, Verified 05/12/25 12:30) Unknown soap (From Betadine) Allergy (Unknown, Verified 05/12/25 12:30) Unknown Medications ???Medication ???Instructions ???Recorded ???Confirmed ???Type calcium carbonate 600 mg PO DAILY 08/06/19 05/12/25 History cholecalciferol (vitamin D3) 25 25 mcg PO DAILY 09/17/22 05/12/25 History mcg (1,000 unit) tablet multivitamin (Daily Multi-Vitamin 1 tab PO DAILY 09/17/22 05/12/25 History tablet) levothyroxine 137 mcg tablet 137 mcg PO DAILY #90 tabs 08/06/23 05/12/25 Rx tirzepatide 12.5 mg/0.5 mL 12.5 mg (0.5 mL) subcut QWEEK #2 m L 05/12/25 05/12/25 Rx subcutaneous pen injector (Gideon) Nurse's Note: needs refills [facility] Medical History Diabetes Raynaud phenomenon Obesity 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 Gestational diabetes mellitus (GDM) Hypothyroidism (acquired) Polycystic ovarian disease Surgical History H/O wisdom tooth extraction Hx of cholecystectomy Family History Other Adopted Social History adopted: Yes household members: spouse and children number of children: 3 current occupational status: employed 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 She has no concerns or complaints at this time. Patient used to see endocrinology but was transferred back to us as [facility] and felt she was fine to monitor here. She does not check her sugar She states that her diet is good She is getting regular exercise walking regularly with occasional swimming She does see eye doctor regularly No nicotine No ETOH Very little caffeine intake. She is compliant with her thyroid medication taking this "at the crack of rachel away from her other medications / intake) ROS Const Constitutional: No body ache, excessive sweating, fatigue, fever(s), frequent falls, headache(s), snoring, weakness, weight change, sleep problems or change in appetite Eyes Eyes: No blurry vision, change in vision, eye pain or Light sensitivity ENT ENT: No abnormal hearing, ear or mastoid pain, tinnitus, nasal congestion, headache(s), neck pain or sore throat Resp Respiratory: No cough, shortness of breath, snoring or wheezing Cardio Cardiology: No chest pain at rest, chest pain with exertion, excessive sweating, shortness of breath, dyspnea on exertion, lightheadedness, orthopnea or palpitations Gastro GI: No abdominal pain, change in bowel habits, constipation, cramping, diarrhea, nausea/dyspepsia or vomiting Genitourinary-Female : No burning urination, painful urination, urinary incontinence, urinary frequency, blood in urine, abnormal periods or pelvic pain Musc Musculoskeletal: No abnormal gait, joint pain, back pain, limited range of motion, neck pain, numbness, stiffness, tingling or Arthritis Skin Skin: No dry skin, redness, lesions, itchy eyes, rash or wounds Neuro Neurology: No abnormal gait, abnormal hearing, abnormal speech, dizziness, weakness, frequent falls, headache(s), memory loss, (more content not included)... Normal [facility] VARISon 03-11-[address] Positive Normal [facility] Comment on above: Result Comment: INTE RPRETATION OF VARICELLA IMMUNE STATUS IgG BY EIA: Negative: No detectable VZV IgG antibody. Positive: VZV IgG antibody Detected. If clinically indicated, order Varicella IgM to rule out recent infection. Equivocal: Equivocal for antibodies to VZV. Suggest repeat testing in 10-14 days. Performed By: #### N GPCR1, CTPCR #### [facility] [address] [place] [address] Director Industrial Cytology Reporton 2024 Director Industrial Cytology Report . Pathology Reports Accession: Collected Date/Time: Received Date/Time: Pathologist: [id number] 03/04/2025 12:01 EDT 03/04/2025 18:00 EDT Director Industrial Cytology Report SPECIMEN: Specimen Description: Liquid Prep w/ HPV Specimen: Cervical Screening or Diagnostic: Screening RELEVANT HISTORY: LMP: 01/2025 : Yes SPECIMEN ADEQUACY: SATISFACTORY FOR EVALUATION Endocervical/Transfo rmational zone component present INTERPRETATION/RESUL TS: NEGATIVE FOR INTRAEPITHELIAL LESION OR MALIGNANCY HIGH RISK HPV TESTING: Event Code Result HPV Interp See Interp HPVN HPV Interp Text: High Risk HPV Typing: NEGATIVE HPV types 16, 18, 31, 33, 35, 39, 45, 51, 52, 56, 58, 59, 66 and 68 DNA were undetectable or below the pre-set threshold. The anne-marie High-Risk HPV DNA Test is not intended for use as a screening device for Pap normal women under age 30 and is not intended to substitute for regular Pap screening. The anne-marie High-Risk HPV DNA Test is designed to augment existing methods for the detection of cervical disease and should be used in conjunction with clinical information derived from other diagnostic and screening tests, physical examinations and full medical history in accordance with appropriate patient management procedures. NOTE: A negative result does not preclude the presence of HPV infection because results depend on adequate specimen collection, absence of inhibitors and sufficient DNA to be detected. As of: 03/10/25 13:28 EDT COMMENT: This Pap Test was successfully processed and evaluated with the assistance of the [employer] ThinPrep Test Imaging System. Pathology Reports Accession: Collected Date/Time: Received Date/Time: Pathologist: [id number] 03/04/2025 12:01 EDT 03/04/2025 18:00 EDT Verified by Pathology report verified by [facility] Screened by: JASON Electronically signed by Jordyn Pack Sign-Out Date: 03/10/2025 13:29 Performing Lab: [facility], [address] [place] [address] Pathology Dept Disclaimer The Pap test is a screening test for cervical cancer. As evidenced by published data, it is subject to both inherent false negative and false positive results. Your patient's results should be interpreted in context with pertinent clinical history including gynecological examination. Normal [facility] HPVon 03-09-2025 HPV Interp Normal See Interp HPVN [facility] Comment on above: Order Comment: Order placed by AP_HPV_ORDER rule from [id number] Result Comment: High Risk HPV Typing: NEGATIVE HPV types 16, 18, 31, 33, 35, 39, 45, 51, 52, 56, 58, 59, 66 and 68 DNA were undetectable or below the pre-set threshold. The anne-marie High-Risk HPV DNA Test is not intended for use as a screening device for Pap normal women under age 30 and is not intended to substitute for regular Pap screening. The anne-marie High-Risk HPV DNA Test is designed to augment existing methods for the detection of cervical disease and should be used in conjunction with clinical information derived from other diagnostic and screening tests, physical examinations and full medical history in accordance with appropriate patient management procedures. NOTE: A negative result does not preclude the presence of HPV infection because results depend on adequate specimen collection, absence of inhibitors and sufficient DNA to be detected. See Interp HPVN Performed By: #### H PV #### [place] [address] HPV Source Cervix Normal [facility] Comment on above: Order Comment: Order placed by AP_HPV_ORDER rule from [id number] Performed By: #### H PV #### [place] [address] RPRon 03-09-2025 Reagin Ab RPR Ql (S) Non-Reactive Normal Non-Reactive [facility] Comment on above: Result Comment: The RPR test is a non-treponemal assay useful as an aid in the diagnosis of primary and secondary syphilis. It converts to positive generally within 2 weeks after the appearance of a lesion. This test is also useful for monitoring response to antibiotic therapy. A positive RPR screening test will be followed by the FTA ABS test. False positive RPR tests may occur in 1) patients with underlying autoimmune disorders, 2) elderly patients, 3) , and 4) other conditions with abnormal serum globulins. Performed By: #### N GPCR1, CTPCR #### [place] [address] RUBISon 03-09-[address] Positive Normal Positive [facility] Comment on above: Result Comment: This immune status assay detects IgM and/or IgG antibody to Rubella. Interpret results in conjunction with clinical history. POS: Antibody detected; exposure at undetermined recent or distant time. If clinically indicated, order Rubella IGM to rule out recent infection. NEG: No antibody detected. Performed By: #### N GPCR1, CTPCR #### [address] [address] .Auto Diffon 03-08-2025 Basophil, Absolute 0.1 10 3/mcL Normal 0.0-0.3 [facility] Comment on above: Performed By: #### C BC, ADIFF, ABOGEL, TSH, A1C, CMP, GFR, ANEU, ABSGEL #### [facility] [address] [place] [id number] #### VARIS, HBSAG, RUBIS, HCV1, RPR #### [place] [address] Basophils/100 WBC (Bld) 0.6 % Normal 0.0-2.5 [facility] Comment on above: Performed By: #### C BC, ADIFF, ABOGEL, TSH, A1C, CMP, GFR, ANEU, ABSGEL #### [address] [address] #### VARIS, HBSAG, RUBIS, HCV1, RPR #### [address] [address] Eosinophil, Absolute 0.3 10 3/mcL Normal 0.0-0.7 [facility] Comment on above: Performed By: #### C BC, ADIFF, ABOGEL, TSH, A1C, CMP, GFR, ANEU, ABSGEL #### [place] [address] #### VARIS, HBSAG, RUBIS, HCV1, RPR #### [address] [address] Eosinophils/100 WBC (Bld) 3.2 % Normal 0.0-6.0 [facility] Comment on above: Performed By: #### C BC, ADIFF, ABOGEL, TSH, A1C, CMP, GFR, ANEU, ABSGEL #### [place] [address] #### VARIS, HBSAG, RUBIS, HCV1, RPR #### [address] [address] Lymphocyte, Absolute 1.7 10 3/mcL Normal 0.9-4.3 [facility] Comment on above: Performed By: #### C BC, ADIFF, ABOGEL, TSH, A1C, CMP, GFR, ANEU, ABSGEL #### [place] [address] #### VARIS, HBSAG, RUBIS, HCV1, RPR #### [address] [address] Lymphocytes/100 WBC (Bld) 19.0 % Low 20.0-40.0 [facility] Comment on above: Performed By: #### C BC, ADIFF, ABOGEL, TSH, A1C, CMP, GFR, ANEU, ABSGEL #### [place] [address] #### VARIS, HBSAG, RUBIS, HCV1, RPR #### [address] [address] Monocyte, Absolute 0.5 10 3/mcL Normal 0.1-1.4 [facility] Comment on above: Performed By: #### C BC, ADIFF, ABOGEL, TSH, A1C, CMP, GFR, ANEU, ABSGEL #### [address] [address] #### VARIS, HBSAG, RUBIS, HCV1, RPR #### [address] [address] Monocytes/100 WBC (Bld) 6.2 % Normal 2.0-13.0 [facility] Comment on above: Performed By: #### C BC, ADIFF, ABOGEL, TSH, A1C, CMP, GFR, ANEU, ABSGEL #### [address] [address] #### VARIS, HBSAG, RUBIS, HCV1, RPR #### [address] [address] Neutrophils/100 WBC (Bld) 71.0 % Normal 50.0-75.0 [facility] Comment on above: Performed By: #### C BC, ADIFF, ABOGEL, TSH, A1C, CMP, GFR, ANEU, ABSGEL #### [address] [address] #### VARIS, HBSAG, RUBIS, HCV1, RPR #### [address] [address] .GFRon 03-08-2025 Estimated Glomerular Filtration Rate 116 ml/min/1.73sqm Normal [facility] Comment on above: Result Comment: Stages of Chronic Kidney Disease (CKD) Stage Description eGFR(ml/min/1.73 sq.m.) CKD 1 Normal kidney function or >=90 normal kindney function with possible kidney damage (ex. Proteinuria) CKD 2 Kidney damage with mild loss 60-89 of kidney function CKD 3a Mild to moderate loss of kidney 45-59 function CKD 3b Moderate to severe loss of 30-44 of kindey function CKD 4 Severe loss of kidney function 15-29 CKD 5 Kidney failure <15 Note: (go live 2024) the eGFR calculation was updated to the 2020 CKD-EPI creatinine equation without a race factor to calculate the eGFR results. Performed By: #### N GPCR1, CTPCR #### [address] [address] .NEUABSon 03-08-2025 Neutrophil, Absolute 6.2 10 3/mcL Normal 2.3-8.1 [facility] Comment on above: Performed By: #### C BC, ADIFF, ABOGEL, TSH, A1C, CMP, GFR, ANEU, ABSGEL #### [address] [address] #### VARIS, HBSAG, RUBIS, HCV1, RPR #### [address] [address] A1Con 03-08-2025 Glucose [Mass/Vol] 97 mg/dL Normal [facility] Comment on above: Result Comment: Vero mated Average Glucose calculated by equation ((28.7xA1C)-46.7) Estimated average glucose (eAG) is a calculated value from Hemoglobin A1C and is safety representative of the average blood glucose level in the last 2-3 month period. Normal range: less than 114 mg/dL Performed By: #### N GPCR1, CTPCR #### [address] [address] HbA1c (Bld) [Mass fraction] 5.0 % Normal 4.3-6.4 [facility] Comment on above: Performed By: #### N GPCR1, CTPCR #### [place] [address] ABO/Rh (Gel)on 03-08-2025 ABO/Rh Interp Negative Invalid Interpretation Code [facility] Comment on above: Performed By: #### C BC, ADIFF, ABOGEL, TSH, A1C, CMP, GFR, ANEU, ABSGEL #### [address] [address] #### VARIS, HBSAG, RUBIS, HCV1, RPR #### [address] [address] ABS (Gel)on 03-08-2025 ABSC Interp (Gel) Negative Normal [facility] Comment on above: Performed By: #### C BC, ADIFF, ABOGEL, TSH, A1C, CMP, GFR, ANEU, ABSGEL #### [address] [address] #### VARIS, HBSAG, RUBIS, HCV1, RPR #### [address] [address] CBCon 03-08-2025 Erythrocyte distribution width (RBC) [Ratio] 14.1 % Normal 11.5-15.5 [facility] Comment on above: Performed By: #### C BC, ADIFF, ABOGEL, TSH, A1C, CMP, GFR, ANEU, ABSGEL #### [address] [address] #### VARIS, HBSAG, RUBIS, HCV1, RPR #### [address] [address] Hematocrit (Bld) [Volume fraction] 38.0 % Normal 34.0-46.0 [facility] Comment on above: Performed By: #### C BC, ADIFF, ABOGEL, TSH, A1C, CMP, GFR, ANEU, ABSGEL #### [address] [address] #### VARIS, HBSAG, RUBIS, HCV1, RPR #### [address] [address] Hgb 12.9 G/dL Normal 12.0-16.0 [facility] Comment on above: Performed By: #### C BC, ADIFF, ABOGEL, TSH, A1C, CMP, GFR, ANEU, ABSGEL #### [address] [address] #### VARIS, HBSAG, RUBIS, HCV1, RPR #### [address] [address] MCH (RBC) [Entitic mass] 27.4 pg Normal 27.0-33.0 [facility] Comment on above: Performed By: #### C BC, ADIFF, ABOGEL, TSH, A1C, CMP, GFR, ANEU, ABSGEL #### [address] [address] #### VARIS, HBSAG, RUBIS, HCV1, RPR #### [address] [address] MCHC 33.8 G/dL Normal 32.0-36.0 [facility] Comment on above: Performed By: #### C BC, ADIFF, ABOGEL, TSH, A1C, CMP, GFR, ANEU, ABSGEL #### [address] [address] #### VARIS, HBSAG, RUBIS, HCV1, RPR #### [address] [address] MCV (RBC) [Entitic vol] 80.9 fL Normal 80.0-99.0 [facility] Comment on above: Performed By: #### C BC, ADIFF, ABOGEL, TSH, A1C, CMP, GFR, ANEU, ABSGEL #### [place] [address] #### VARIS, HBSAG, RUBIS, HCV1, RPR #### [address] [address] Platelet 278 10 3/mcL Normal 150-450 [facility] Comment on above: Performed By: #### C BC, ADIFF, ABOGEL, TSH, A1C, CMP, GFR, ANEU, ABSGEL #### [place] [address] #### VARIS, HBSAG, RUBIS, HCV1, RPR #### [address] [address] Platelet mean volume (Bld) [Entitic vol] 8.8 fL Normal 6.6-10.5 [facility] Comment on above: Performed By: #### C BC, ADIFF, ABOGEL, TSH, A1C, CMP, GFR, ANEU, ABSGEL #### [place] [address] #### VARIS, HBSAG, RUBIS, HCV1, RPR #### [place] [address] RBC 4.70 10 6/mcL Normal 4.10-5.30 [facility] Comment on above: Performed By: #### C BC, ADIFF, ABOGEL, TSH, A1C, CMP, GFR, ANEU, ABSGEL #### [address] [address] #### VARIS, HBSAG, RUBIS, HCV1, RPR #### [place] [address] WBC 8.8 10 3/mcL Normal 4.5-10.8 [facility] Comment on above: Performed By: #### C BC, ADIFF, ABOGEL, TSH, A1C, CMP, GFR, ANEU, ABSGEL #### [place] [address] #### VARIS, HBSAG, RUBIS, HCV1, RPR #### [place] [address] CMPon 03-08-2025 Albumin Level 3.6 G/dL Normal 3.5-5.0 [facility] Comment on above: Performed By: #### N GPCR1, CTPCR #### [place] [address] Albumin/Globulin [Mass ratio] 1.0 {ratio} Low 1.1-2.5 [facility] Comment on above: Performed By: #### N GPCR1, CTPCR #### [place] [address] ALP [Catalytic activity/Vol] 76 U/L Normal 40-135 [facility] Comment on above: Performed By: #### N GPCR1, CTPCR #### [place] [address] ALT [Catalytic activity/Vol] 21 U/L Normal 14-59 [facility] Comment on above: Performed By: #### N GPCR1, CTPCR #### [place] [address] AST [Catalytic activity/Vol] 13 U/L Normal 10-40 [facility] Comment on above: Performed By: #### N GPCR1, CTPCR #### [place] [address] Bili Total 0.6 mg/dL Normal 0.2-1.0 [facility] Comment on above: Result Comment: Use of this assay is not recommended for patients undergoing treatment with eltrombopag due to the potential for falsely elevated results. Performed By: #### N GPCR1, CTPCR #### [place] [address] BUN/Creatinine Ratio 10 ratio Normal 7-27 [facility] Comment on above: Performed By: #### N GPCR1, CTPCR #### [place] [address] Calcium [Mass/Vol] 9.2 mg/dL Normal 8.4-10.2 [facility] Comment on above: Performed By: #### N GPCR1, CTPCR #### [place] [id number] Chloride [Moles/Vol] 106 mmol/L Normal 98-107 [facility] Comment on above: Performed By: #### N GPCR1, CTPCR #### [place] [id number] CO2 [Moles/Vol] 27 mmol/L Normal 22-29 [facility] Comment on above: Performed By: #### N GPCR1, CTPCR #### [place] [id number] Creatinine [Mass/Vol] 0.58 mg/dL Normal 0.51-0.95 [facility] Comment on above: Performed By: #### N GPCR1, CTPCR #### [place] [id number] Electrolyte Balance 7.0 mEq/L Normal 4.0-15.0 [facility] Comment on above: Performed By: #### N GPCR1, CTPCR #### [place] [address] Globulin 3.5 G/dL Normal 2.7-4.4 [facility] Comment on above: Performed By: #### N GPCR1, CTPCR #### [address] [address] Glucose [Mass/Vol] 88 mg/dL Normal 70-105 [facility] Comment on above: Performed By: #### N GPCR1, CTPCR #### [address] [address] Potassium [Moles/Vol] 3.6 mmol/L Normal 3.5-5.1 [facility] Comment on above: Performed By: #### N GPCR1, CTPCR #### [place] [id number] Sodium [Moles/Vol] 140 mmol/L Normal 136-145 [facility] Comment on above: Performed By: #### N GPCR1, CTPCR #### [place] [address] Total Protein 7.1 G/dL Normal 6.4-8.2 [facility] Comment on above: Performed By: #### N GPCR1, CTPCR #### [place] [id number] Urea nitrogen [Mass/Vol] 6 mg/dL Low 7-18 [facility] Comment on above: Performed By: #### N GPCR1, CTPCR #### [address] [address] HBSAGon 03-08-2025 Hep B Surf Ag Non-Reactive Normal Non-Reactive [facility] Comment on above: Performed By: #### N GPCR1, CTPCR #### [address] [address] HCVon 03-08-2025 Hep C Ab Non-Reactive Normal [facility] Comment on above: Performed By: #### N GPCR1, CTPCR #### [place] [id number] Hep C Ab Int [facility] Comment on above: Result Comment: Nonr eactive: Samples with a value < 0.80 are considered nonreactive (negative) for antibodies to HCV. A negative test result does not exclude the possibility of exposure to or infection with HCV. HCV antibodies may be undetectable in some stages of the infection and in some clinical conditions. See Interp Performed By: #### N GPCR1, CTPCR #### [facility] [address] [place] [address] HIVRPon 03-08-2025 HIV p24 Antigen Non-Reactive Normal Non-Reactive [facility] Comment on above: Result Comment: Dete ction of p24 may be inhibited by biotin in the sample, causing false negative results in acute infection. Therefore do not test samples from patients who are taking biotin. Performed By: #### H IVRP #### [place] [address] HIV P24 Int Non-Reactive Invalid Interpretation Code [facility] Comment on above: Performed By: #### H IVRP #### [place] [address] Rapid HIV 1/2 Antibody Non-Reactive Normal Non-Reactiv e [facility] Comment on above: Performed By: #### H IVRP #### [place] [address] RHIV 1/2 Ab Int Non-Reactive Invalid Interpretation Code [facility] Comment on above: Performed By: #### H IVRP #### [place] [address] LABORATORYOrdered By: Negro michael on 03-08-2025 HIV 1 p24 Ab Ql (S) Non-Reactive 2 (03/08/25 12:44 PM) Normal Non-Reactive AO Rapid Testing SS Comment on above: Interpretive Data: D etection of p24 may be inhibited by biotin in the sample, causing false negative results in acute infection. Therefore do not test samples from patients who are taking biotin. HIV 1 p24 Ab Ql (S) Non-Reactive Invalid Interpretation Code AO Rapid Testing SS HIV 1+2 Ab IA Ql Non-Reactive Invalid Interpretation Code AO Rapid Testing SS HIV 1+2 Ab IA.rapid Ql (Unsp spec) Non-Reactive (03/08/25 12:44 PM) Normal Non-Reactive AO Rapid Testing SS LABORATORYOrdered By: Court Garcia on 03-08-2025 ABO and Rh group Nom (Bld) Blood group B Rh(D) negative Invalid Interpretation Code AO BB Auto SS Blood group antibody screen Ql Negative ABSC (03/08/25 12:34 PM) Normal AO BB Auto SS LABORATORYOrdered By: SYSTEM SYSTEM on 03-08-2025 Albumin BCP dye [Mass/Vol] 3.6 G/dL Normal 3.5 - 5.0 G/dL AO ADM SS Albumin/Globulin [Mass ratio] 1.0 {ratio} Low 1.1 - 2.5 ratio AO ADM SS ALP [Catalytic activity/Vol] 76 U/L Normal 40 - 135 U/L AO ADM SS ALT With P-5'-P [Catalytic activity/Vol] 21 U/L Normal 14 - 59 U/L AO ADM SS AST With P-5'-P [Catalytic activity/Vol] 13 U/L Normal 10 - 40 U/L AO ADM SS Basophils (Bld) [#/Vol] 0.1 103/mcL Normal 0.0 - 0.3 10^3/mcL AO Workflow SS Basophils/100 WBC (Bld) 0.6 % Normal 0.0 - 2.5 % AO Workflow SS Bilirubin [Mass/Vol] 0.6 mg/dL Normal 0.2 - 1 .0 mg/dL AO ADM SS Comment on above: Interpretive Data: U se of this assay is not recommended for patients undergoing treatment with eltrombopag due to the potential for falsely elevated results. Calcium [Mass/Vol] 9.2 mg/dL Normal 8.4 - 10. 2 mg/dL AO ADM SS Chloride [Moles/Vol] 106 mmol/L Normal 98 - 10 7 mmol/L AO ADM SS CO2 [Moles/Vol] 27 mmol/L Normal 22 - 29 mmol/L AO ADM SS Creatinine [Mass/Vol] 0.58 mg/dL Normal 0.51 - 0.95 mg/dL AO ADM SS Electrolyte Balance 7.0 mEq/L Normal 4.0 - 15 .0 mEq/L AO ADM SS Eosinophil, Absolute 0.3 103/mcL Normal 0.0 - 0 .7 10^3/mcL AO Workflow SS Eosinophils/100 WBC (Bld) 3.2 % Normal 0.0 - 6.0 % AO Workflow SS Erythrocyte distribution width (RBC) [Ratio] 14.1 % Normal 11.5 - 15.5 % AO Workflow SS Estimated Glomerular Filtration Rate 116 ml/min/1.73sqm Invalid Interpretation Code AO Chemistry S Comment on above: Interpretive Data: Stages of Chronic Kidney Disease (CKD) Stage Description eGFR(ml/min/1.73 sq.m.) CKD 1 Normal kidney function or >=90 normal kindney function with possible kidney damage (ex. Proteinuria) CKD 2 Kidney damage with mild loss 60-89 of kidney function CKD 3a Mild to moderate loss of kidney 45-59 function CKD 3b Moderate to severe loss of 30-44 of kindey function CKD 4 Severe loss of kidney function 15-29 CKD 5 Kidney failure <15 Note: (go live 2024) the eGFR calculation was updated to the 2020 CKD-EPI creatinine equation without a race factor to calculate the eGFR results. Globulin 3.5 G/dL Normal 2.7 - 4.4 G/dL AO ADM SS Glucose [Mass/Vol] 97 mg/dL Invalid Interpretation Code AO Chemistry S Comment on above: Interpretive Data: E stimated average glucose (eAG) is a calculated value from Hemoglobin A1C and is safety representative of the average blood glucose level in the last 2-3 month period. Normal range: less than 114 mg/dL Glucose [Mass/Vol] 88 mg/dL Normal 70 - 105 mg/dL AO ADM SS HbA1c (Bld) [Mass fraction] 5.0 % Normal 4.3 - 6.4 % AO ADM SS Hematocrit (Bld) [Volume fraction] 38.0 % Normal 34.0 - 46.0 % AO Workflow SS Hemoglobin (Bld) [Mass/Vol] 12.9 G/dL Normal 12.0 - 16.0 G/dL AO Workflow SS Lymphocytes (Bld) [#/Vol] 1.7 103/mcL Normal 0.9 - 4.3 10^3/mcL AO Workflow SS Lymphocytes/100 WBC (Bld) 19.0 % Low 20.0 - 40.0 % AO Workflow SS MCH (RBC) [Entitic mass] 27.4 pg Normal 27.0 - 33.0 pg AO Workflow SS MCHC 33.8 G/dL Normal 32.0 - 36.0 G/dL AO Workflow SS MCV (RBC) [Entitic vol] 80.9 fL Normal 80.0 - 99.0 fL AO Workflow SS Monocytes (Bld) [#/Vol] 0.5 103/mcL Normal 0.1 - 1.4 10^3/mcL AO Workflow SS Monocytes/100 WBC (Bld) 6.2 % Normal 2.0 - 13.0 % AO Workflow SS Neutrophils (Bld) [#/Vol] 6.2 103/mcL Normal 2.3 - 8.1 10^3/mcL AO Workflow SS Neutrophils/100 WBC (Bld) 71.0 % Normal 50.0 - 75.0 % AO Workflow SS Platelet mean volume (Bld) [Entitic vol] 8.8 fL Normal 6.6 - 10.5 fL AO Workflow SS Platelets (Bld) [#/Vol] 278 103/mcL Normal 150 - 450 10^3/mcL AO Workflow SS Potassium [Moles/Vol] 3.6 mmol/L Normal 3.5 - 5.1 mmol/L AO ADM SS Protein [Mass/Vol] 7.1 G/dL Normal 6.4 - 8.2 G/dL AO ADM SS RBC (Bld) [#/Vol] 4.70 106/mcL Normal 4.10 - 5.3 0 10^6/mcL AO Workflow SS Sodium [Moles/Vol] 140 mmol/L Normal 136 - 145 mmol/L AO ADM SS TSH Qn 1.59 m[IU]/L Normal 0.36 - 3.74 mcIU/mL AO ADM SS Urea nitrogen [Mass/Vol] 6 mg/dL Low 7 - 18 mg/dL AO ADM SS Urea nitrogen/Creatinine [Mass ratio] 10 ratio Normal 7 - 27 ratio AO ADM SS WBC (Bld) [#/Vol] 8.8 103/mcL Normal 4.5 - 10.8 10^3/mcL AO Workflow SS LABORATORYOrdered By: Mackenzie Blevins on 03-08-2025 HBV surface Ag IA Ql Non-Reactive (03/08/25 12:34 PM) Normal Non-Reactive AH ADM SS HCV Ab IA Ql Non-Reactive (03/08/25 12:34 PM) Normal Non-Reactive AH ADM SS HCV Ab IA Ql Nonreactive: Samples with a value < 0.80 are considered nonreactive (negative) for antibodies to HCV. A negative test result does not exclude the possibility of exposure to or infection with HCV. HCV antibodies may be undetectable in some stages of the infection and in some clinical conditions. Invalid Interpretation Code Chemistry S TSHon 03-08-2025 TSH Qn 1.59 m[IU]/L Normal 0.36-3.74 [facility] Comment on above: Performed By: #### N GPCR1, CTPCR #### [place] [address] CTPCRon 03-05-2025 C. trachomatis Interp Normal See CT Interp N [facility] Comment on above: Result Comment: C. t rachomatis DNA not detected. Specimen is presumptive negative for C. trachomatis. A negative result does not preclude C. trachomatis infection because results depend on adequate specimen collection, absence of inhibitors, and sufficient DNA to be detected. See CT Interp N Performed By: #### N GPCR1, CTPCR #### [place] [address] C.trachomatis PCR Negative Normal Negative [facility] Comment on above: Result Comment: Mole cular (PCR) assay performed on the [employer] [id number] system. Performed By: #### N GPCR1, CTPCR #### [place] [address] Chlam Source Cervix Normal [facility] Comment on above: Performed By: #### N GPCR1, CTPCR #### [place] [address] [id number] 03-05-2025 GC PCR Source Cervix Normal [facility] Comment on above: Performed By: #### N GPCR1, CTPCR #### [place] [address] N. gonorrhoeae (PCR) Negative Normal Negative [facility] Comment on above: Result Comment: Mole cular (PCR) assay performed on the Tiffanie Anne-Marie 4800 System. Performed By: #### N GPCR1, CTPCR #### [place] [address] N. gonorrhoeae Interp Normal See NG Interp N [facility] Comment on above: Result Comment: N. g onorrhoeae DNA not detected. Specimen is presumptive negative for N. gonorrhoeae. A negative result does not preclude Neisseria gonorrhoeae infection because results depend on adequate specimen collection, absence of inhibitors, and sufficient DNA to be detected. See NG Interp N Performed By: #### N [facility]1, [facility] #### [place] [address] LABORATORYOrdered By: Zenaida Castellon on 03-04-2025 C. trachomatis DNA MARIA TERESA+probe Ql (Unsp spec) Negative 2 (03/04/25 2:28 PM) Normal Negative Auto Viro/Sero [facility] Comment on above: Interpretive Data: M olecular (PCR) assay performed on the Tiffanie Anne-Marie 4800 system. C. trachomatis DNA MARIA TERESA+probe Ql (Unsp spec) C. trachomatis DNA not detected. Specimen is presumptive negative for C. trachomatis. A negative result does not preclude C. trachomatis infection because results depend on adequate specimen collection, absence of inhibitors, and sufficient DNA to be detected. Normal See CT Interp N AH Auto Viro/Sero SS N. gonorrhoeae DNA MARIA TERESA+probe Ql (Unsp spec) Negative 1 (03/04/25 2:28 PM) Normal Negative AH Auto Viro/Sero SS Comment on above: Interpretive Data: M olecular (PCR) assay performed on the Tiffanie Anne-Marie 4800 System. N. gonorrhoeae DNA MARIA TERESA+probe Ql (Unsp spec) N. gonorrhoeae DNA not detected. Specimen is presumptive negative for N. gonorrhoeae. A negative result does not preclude Neisseria gonorrhoeae infection because results depend on adequate specimen collection, absence of inhibitors, and sufficient DNA to be detected. Normal See NG Interp N AH Auto Viro/Sero SS Laboratory - Specimen inform ationOrdered By: Zenaida Castellon on 03-04-2025 Specimen source Nom (Unsp spec) Cervix (03/04/25 2:28 PM) Normal Auto Viro/Sero SS CNOVon 08-31-2024 CNOV Office Visit (UCWSTR) MIKEY OAKES ([id number]) 1980 F Date Time Provider Department 08/31/24 9:30 AM JAKE MOTT [facility] During your visit today, we recorded the following information about you: Temperature Pulse Respiration Blood pressure 97 degrees 82/minute 16/minute 124/80 Weight 95.9 kg Jake Mott PA 08/31/2024 9:43 AM Signed This note was created using J. Hilburnriter. Subjective Mikey Oakes is a 44 year old female. HPI 44-year-old female presents for nasal congestion, sinus pressure, sinus pain, cough x 2 weeks. Patient states that 2 weeks ago she started getting sick. She has sinus congestion, nasal drainage, postnasal drainage, cough. She states last night she started getting a lot of sinus pain and pain into her teeth from her sinuses. She did have low-grade fever last night. She has had a little bit of a cough. She denies any chest pain or shortness of breath. No history of COPD or asthma. She has been taking Mucinex [id number] without much improvement. No other complaint. PAST MEDICAL HISTORY Diagnosis Date Gestational diabetes With both pregnancies Goiter, nontoxic, multinodular Jermaine's thyroiditis Obesity PCOS (polycystic ovarian syndrome) Thyroid dysfunction in PAST SURGICAL HISTORY Procedure Laterality Date LAPAROSCOPY SURG CHOLECYSTECTOMY 01/2015 Jorge A [place] ALLERGIES Betadine [Povidone-Iodine], Aloe, and Raspberry MEDICATIONS MOUNJARO 15 mg/0.5 mL pen injector INJECT 15 MG (0.5 ML) SUBCUTANEOUSLY EVERY WEEK levothyroxine (SYNTHROID) 137 mcg tablet Take 1 tablet by mouth once daily. MV-MN/IRON FUM/FA/OMEGA3,6,9#3 (WOMEN'S MULTI ORAL) Take by mouth once daily. Cholecalciferol, Vitamin D3, 1,000 unit cap Take 1,000 Units by mouth once daily. CALCIUM CARBONATE/VITAMIN D3 (CALCIUM CHEWABLE PLUS ORAL) Take 1,200 mg by mouth. doxycycline (VIBRA-TABS) 100 mg tablet Take 1 tablet by mouth two times a day for 7 days. TRULICITY 0.75 mg/0.5 mL pen injector INJECT 0.75 MG (0.5 ML) SUBCUTANEOUSLY EVERY WEEK (Patient not taking: Reported on 08/31/2024) metFORMIN (GLUCOPHAGE) 1,000 mg tablet 1000 MG ORALLY DAILY (Patient not taking: Reported on 08/31/2024) SYNTHROID 50 mcg tablet Take 1 tablet by mouth once daily. (Patient not taking: Reported on 07/27/2019 ) SYNTHROID 50 mcg tablet TAKE 1 TABLET EVERY DAY (Patient not taking: Reported on 07/27/2019) SYNTHROID 50 mcg tablet Take 1 tablet by mouth once daily. KYLE (Patient not taking: Reported on 07/27/2022) FAMILY HISTORY Adopted: Yes Family history unknown: Yes Social History Tobacco Use Smoking status: Never Smokeless tobacco: Never Substance Use Topics Alcohol use: No Comment: never drinks Drug use: No Review of Systems Constitutional: Positive for fever. Negative for chills. HENT: Positive for congestion, postnasal drip, sinus pressure and sinus pain. Negative for ear pain and sore throat. Respiratory: Positive for cough. Negative for shortness of breath. Cardiovascular: Negative for chest pain. Gastrointestinal: Negative for diarrhea and vomiting. Objective BP 124/80 Pulse 82 Temp 36.1 ?C (97 ?F) Resp 16 Wt 95.9 kg (211 lb 6.7 oz) SpO2 99% BMI 32.38 kg/m? Physical Exam Vitals and nursing note reviewed. Constitutional: General: She is not in acute distress. Appearance: Normal appearance. She is not toxic-appearing. HENT: Right Ear: Tympanic membrane and ear canal normal. Left Ear: Tympanic membrane and ear canal normal. Nose: Mucosal edema and congestion present. Right Sinus: Maxillary sinus tenderness present. Left Sinus: Maxillary sinus tenderness present. Mouth/Throat: Mouth: Mucous membranes are moist. Eyes: Conjunctiva/sclera: Conjunctivae normal. Cardiovascular: Rate and Rhythm: Normal rate and regular rhythm. Pulmonary: Effort: Pulmonary effort is normal. Breath sounds: Normal breath sounds. Skin: General: Skin is warm and dry. Neurological: Mental Status: She is alert. Assessment and Plan ASSESSMENT/PLAN: 1. Bacterial sinusitis - ICD9: 473.9, 041.9, ICD10: J32.9, B96.89 - Will begin treatment with Doxycycline - The patient should also be given OTC decongestants prn for the first 5-7 days of treatment. - Supportive care with plenty of fluids, rest, and analgesia prn. Diagnosis and treatment plan were discussed and questions were answered to the patient's satisfaction. Pt acknowledged understanding of concepts and follow up plan. Specific signs and symptoms that would indicate the need for higher level of care were discussed in detail warranting prompt ER evaluation. FLAVIO Mir Allergies As of Date: 08/31/2024 Noted Allergy Reaction BETADINE (POVIDONE-IODINE) 07/27/2019 4 - Hives ALOE 07/27/2019 4 - Hives RASPBERRY 07/27/2019 4 - Hives Date Reviewed: 08/31/2024 Reviewed (more content not included)... Normal [facility] Absolute lymphocyte countOrd ered By: Edil Dean on 06-28-2023 Lymphocytes Auto (Unsp spec) [#/Vol] 2.30 10*3/uL 0.83-4.51 [facility] Basophil percentageOrdered B y: Edil Dean on 06-28-2023 Basophils/100 WBC (Bld) 0.8 % 0-1 [facility] Eosinophils/100 WBC (Bld) 7.2 % 0-5 [facility] Neutrophils (Bld) [#/Vol] 5.0 10*3/uL 2.0-7.7 [facility] Neutrophils/100 WBC (Bld) 58.5 % 47-70 [facility] WBC (Bld) [#/Vol] 8.6 10*3/uL 4.4-11.0 [facility] Basophil percentageOrdered B y: Katie Lenz on 06-28-2023 Bilirubin [Mass/Vol] 0.80 mg/dL 0.20-1.00 [facility] Comment on above: For patients on eltr ombopag therapy, use of Dimension [place] TBIL is not recommended. Chloride [Moles/Vol] 106 mmol/L 98-107 [facility] Cholesterol [Mass/Vol] 138 mg/dL <200 [facility] Comment on above: <200 mg/dL Desirable 200-240 mg/dL Borderline >240 mg/dL High Risk Glucose [Mass/Vol] 90 mg/dL 74-106 [facility] Potassium [Moles/Vol] 4.0 mmol/L 3.5-5.1 [facility] Protein [Mass/Vol] 7.9 g/dL 6.4-8.2 [facility] Sodium [Moles/Vol] 139 mmol/L 136-145 [facility] Triglyceride [Mass/Vol] 82 mg/dL <199 [facility] Comment on above: The drugs N-Acetylcy steine and Metamizole may falsely depress this assay.Serum Triglycerides Reference Interval Normal <150 mg/dL Borderline high 150 - 199 mg/dL High 200 - 499 mg/dL Very High > or = 500 mg/dL Blood erythrocytes count (nu mber/volume)Ordered By: Edil Dean on 06-28-2023 RBC (Bld) [#/Vol] 5.61 10*6/uL 4.2-5.4 [facility] Blood hemoglobin measurement (mass/volume)Ordered By: Edil Dean on 06-28-2023 Hemoglobin (Bld) [Mass/Vol] 14.4 g/dL 12.0-15.0 [facility] Blood lymphocytes/100 leukoc ytesOrdered By: Edil Dean on 06-28-2023 Lymphocytes/100 WBC (Bld) 26.8 % 19-41 [facility] Blood monocytes/100 leukocyt esOrdered By: Edil Dean on 06-28-2023 Monocytes/100 WBC (Bld) 6.4 % 0-10 [facility] Blood platelet mean volumeOr dered By: Edil Dean on 06-28-2023 Platelet mean volume (Bld) [Entitic vol] 10.1 fL 6.2-12.0 [facility] Determination of erythrocyte mean corpuscular volume (MCV)Ordered By: Edil Dean on 06-28-2023 MCV (RBC) [Entitic vol] 80.9 fL 81-99 [facility] Hematocrit Auto (Bld) [Volum e fraction]Ordered By: Edil Dean on 06-28-2023 Hematocrit (Bld) [Volume fraction] 45.4 % 37-47 [facility] Laboratory - Chemistry and C hemistry - challengeOrdered By: Katie Lenz on 06-28-2023 ALP [Catalytic activity/Vol] 90 U/L 45-117 [facility] ALT [Catalytic activity/Vol] 22 U/L 13-56 [facility] CO2 [Moles/Vol] 27.0 mmol/L 21.0-32.0 [facility] Free T4 [Mass/Vol] 1.33 ng/dL 0.76-1.46 [facility] Globulin (S) [Mass/Vol] 3.8 g/dL 2.2-4.2 [facility] Urea nitrogen/Creatinine [Mass ratio] 18.0 mg/mg 10-20 [facility] Laboratory - Hematology and Cell countsOrdered By: Edil Dean on 06-28-2023 Erythrocyte distribution width (RBC) [Entitic vol] 41.3 fL 35.1-43.9 [facility] Erythrocyte distribution width (RBC) [Ratio] 14.1 % 11.6-14.6 [facility] Immature granulocytes/100 WBC (Bld) 0.300 % 0.0-0.9 [facility] Comment on above: IG% - Immature Granu locytes (promyelocytes, myelocytes and metamyelocytes) > 1% indicates that a LEFT SHIFT is Present. MCH (RBC) [Entitic mass] 25.7 pg 27.0-32.0 [facility] Nucleated RBC/100 WBC (Bld) [Ratio] 0 % 0-5 [facility] MCHC Auto (RBC) [Mass/Vol]Or dered By: Edil Dean on 06-28-2023 MCHC (RBC) [Mass/Vol] 31.7 g/dL 32-36 [facility] No Panel InformationOrdered By: Katie Lenz on 06-28-2023 Estimated GFR (MDRD) Amer 139 mL/min >60 [facility] Comment on above: GFR Calc Estimated GFR (MDRD) Non-Af Amer 115 mL/min >60 [facility] Comment on above: Non- GFR Calc Thyroid Stimulating Hormone (TSH) 1.35 uIU/mL 0.358-3.74 [facility] Platelets bldOrdered By: Bradley Dean on 06-28-2023 Platelets (Bld) [#/Vol] 342 10*3/uL 150-450 [facility] Serum or plasma albumin valdez urement (mass/volume)Ordered By: Katie Lenz on 06-28-2023 Albumin [Mass/Vol] 4.1 g/dL 3.2-5.0 [facility] Serum or plasma albumin/glob ulin mass ratioOrdered By: Katie Lenz on 06-28-2023 Albumin/Globulin [Mass ratio] 1.1 {ratio} 0.9-2.4 [facility] Serum or plasma calcium valdez urement (mass/volume)Ordered By: Katie Lenz on 06-28-2023 Calcium [Mass/Vol] 8.9 mg/dL 8.5-10.1 [facility] Serum or plasma cholesterol in HDL measurement (mass/volume)Ordered By: Katie Lenz on 06-28-2023 Cholesterol in HDL [Mass/Vol] 41 mg/dL >40 [facility] Comment on above: The drugs N-Acetylcy steine and Metamizole may falsely depress this assay. Reference Range HDL <40 mg/dL Low HDL Cholesterol HDL >or= 60 mg/dL High HDL Cholesterol Serum or plasma cholesterol in VLDL measurement (mass/volume)Ordered By: Katie Lenz on 06-28-2023 Cholesterol in VLDL [Mass/Vol] 16 mg/dL 5-40 [facility] Serum or plasma creatinine m easurement (mass/volume)Ordered By: Katie Lenz on 06-28-2023 Creatinine [Mass/Vol] 0.61 mg/dL 0.55-1.02 [facility] Comment on above: The validity of the calculated GFR & GFRAA in patients over 70 years has not been determined. Clinical correlation is essential. Serum or plasma low density lipoprotein (LDL) cholesterol measurement (mass/volume)Ordered By: Katie Lenz on 06-28-2023 Cholesterol in LDL [Mass/Vol] 81 mg/dL 0-130 [facility] Serum or plasma urea nitroge n measurement (mass/volume)Ordered By: Katie Lenz on 06-28-2023 Urea nitrogen [Mass/Vol] 11 mg/dL 7-18 [facility] Thin prep Papanicolaou smear with manual screeningOrdered By: Katie Lenz on 06-28-2023 Thin prep Papanicolaou smear with manual screening 12 U/L 15-37 [facility] Thin prep Papanicolaou smear with manual screening 6 5-15 [facility] Basophil percentageon 2021 Bilirubin [Mass/Vol] 0.50 mg/dL 0.20-1.00 [facility] Work Phone: Comment on above: For patients on eltr ombopag therapy, use of Dimension [place] TBIL is not recommended. Chloride [Moles/Vol] 106 mmol/L 98-107 [facility] Work Phone: Cholesterol [Mass/Vol] 140 mg/dL <200 [facility] Work Phone: Comment on above: <200 mg/dL Desirable 200-240 mg/dL Borderline >240 mg/dL High Risk Glucose [Mass/Vol] 120 mg/dL 74-106 [facility] Work Phone: Comment on above: Fasting Glucose resu lt from 100 to 125 mg/dL suggests IMPAIRED HOMEOSTASIS per A.D.A. criteria. Potassium [Moles/Vol] 3.9 mmol/L 3.5-5.1 [facility] Work Phone: Protein [Mass/Vol] 7.3 g/dL 6.4-8.2 [facility] Work Phone: Sodium [Moles/Vol] 139 mmol/L 136-145 [facility] Work Phone: Triglyceride [Mass/Vol] 89 mg/dL <199 [facility] Work Phone: Comment on above: The drugs N-Acetylcy steine and Metamizole may falsely depress this assay.Serum Triglycerides Reference Interval Normal <150 mg/dL Borderline high 150 - 199 mg/dL High 200 - 499 mg/dL Very High > or = 500 mg/dL Laboratory - Chemistry and C hemistry - challengeon 05-18-2022 ALP [Catalytic activity/Vol] 95 U/L 45-117 [facility] Work Phone: ALT [Catalytic activity/Vol] 23 U/L 13-56 [facility] Work Phone: CO2 [Moles/Vol] 28.0 mmol/L 21.0-32.0 [facility] Work Phone: Free T4 [Mass/Vol] 1.11 ng/dL 0.76-1.46 [facility] Work Phone: Globulin (S) [Mass/Vol] 3.7 g/dL 2.2-4.2 [facility] Work Phone: Urea nitrogen/Creatinine [Mass ratio] 14.7 mg/mg 10-20 [facility] Work Phone: No Panel Informationon 05-18 Estimated GFR (MDRD) Amer 139 mL/min >60 [facility] Work Phone: Comment on above: GFR Calc Estimated GFR (MDRD) Non-Af Amer 115 mL/min >60 [facility] Work Phone: Comment on above: Non- GFR Calc Thyroid Stimulating Hormone (TSH) 2.18 uIU/mL 0.358-3.74 [facility] Work Phone: Serum or plasma albumin valdez urement (mass/volume)on 05-18-2022 Albumin [Mass/Vol] 3.6 g/dL 3.2-5.0 [facility] Work Phone: Serum or plasma albumin/glob ulin mass ratioon 05-18-2022 Albumin/Globulin [Mass ratio] 1.0 {ratio} 0.9-2.4 [facility] Work Phone: Serum or plasma calcium valdez urement (mass/volume)on 05-18-2022 Calcium [Mass/Vol] 8.4 mg/dL 8.5-10.1 [facility] Work Phone: Serum or plasma cholesterol in HDL measurement (mass/volume)on 05-18-2022 Cholesterol in HDL [Mass/Vol] 37 mg/dL >40 [facility] Work Phone: Comment on above: The drugs N-Acetylcy steine and Metamizole may falsely depress this assay. Reference Range HDL <40 mg/dL Low HDL Cholesterol HDL >or= 60 mg/dL High HDL Cholesterol Serum or plasma cholesterol in VLDL measurement (mass/volume)on 05-18-2022 Cholesterol in VLDL [Mass/Vol] 18 mg/dL 5-40 [facility] Work Phone: Serum or plasma creatinine m easurement (mass/volume)on 05-18-2022 Creatinine [Mass/Vol] 0.61 mg/dL 0.55-1.02 [facility] Work Phone: Comment on above: The validity of the calculated GFR & GFRAA in patients over 70 years has not been determined. Clinical correlation is essential. Serum or plasma low density lipoprotein (LDL) cholesterol measurement (mass/volume)on 05-18-2022 Cholesterol in LDL [Mass/Vol] 85 mg/dL 0-130 [facility] Work Phone: Serum or plasma urea nitroge n measurement (mass/volume)on 05-18-2022 Urea nitrogen [Mass/Vol] 9 mg/dL 7-18 [facility] Work Phone: Thin prep Papanicolaou smear with manual screeningon 05-18-2022 Thin prep Papanicolaou smear with manual screening 14 U/L 15-37 [facility] Work Phone: Thin prep Papanicolaou smear with manual screening 5 5-15 [facility] Work Phone: Whole blood hemoglobin A1c/t otal hemoglobin ratio (mass fraction)on 05-18-2022 HbA1c (Bld) [Mass fraction] 6.0 % 3.8-5.6 [facility] Work Phone: Comment on above: Normal < 5.7 % Predi abetic 5.7 - 6.4 % Diabetic >or= 6.5 % Please note range changes. HHon 04-29-2019 Hematocrit (Bld) [Volume fraction] 27.7 % Low 37.0-47.0 [facility] ([place]) Comment on above: Performed By: #### G LF, GL1, GL2, GL3 #### [facility] [address] [place] [id number] Hemoglobin (Bld) [Mass/Vol] 9.1 G/dL Low 12.0-16.0 [facility] ([place]) Comment on above: Performed By: #### G LF, GL1, GL2, GL3 #### [place] [address] TSHon 04-29-2019 TSH Qn 4.10 mcIU/mL High 0.36-3.74 [facility] ([place]) Comment on above: Performed By: #### G LF, GL1, GL2, GL3 #### [place] [address] .Auto Diffon 04-27-2019 Ammonia (P) [Mass/Vol] 0.70 10 3/mcL Normal 0.15-1.00 [facility] ([place] Comment on above: Performed By: #### G LF, GL1, GL2, GL3 #### [place] [address] Basophils (Bld) [#/Vol] 0.00 10 3/mcL Normal 0.00-0.19 [facility] ([place] Comment on above: Performed By: #### G LF, GL1, GL2, GL3 #### [place] [address] Basophils/100 WBC (Bld) 0.5 % Normal 0.0-2.5 [facility] ([place] Comment on above: Performed By: #### G LF, GL1, GL2, GL3 #### [address] [address] Eosinophils (Bld) [#/Vol] 0.20 10 3/mcL Normal 0.00-0.40 [facility] ([place] Comment on above: Performed By: #### G LF, GL1, GL2, GL3 #### [place] [address] Eosinophils/100 WBC (Bld) 1.6 % Normal 0.0-7.0 [facility] ([place] Comment on above: Performed By: #### G LF, GL1, GL2, GL3 #### [address] [address] Lymphocytes (Bld) [#/Vol] 2.00 10 3/mcL Normal 0.77-3.85 [facility] ([place] Comment on above: Performed By: #### G LF, GL1, GL2, GL3 #### [address] [address] Lymphocytes/100 WBC (Bld) 20.5 % Normal 10.0-50.0 [facility] ([place] Comment on above: Performed By: #### G LF, GL1, GL2, GL3 #### [address] [address] Monocytes/100 WBC (Bld) 6.9 % Normal 1.7-13.0 [facility] ([place] Comment on above: Performed By: #### G LF, GL1, GL2, GL3 #### [address] [address] Neutrophils/100 WBC (Bld) 70.5 % Normal 37.0-80.0 [facility] ([place] Comment on above: Performed By: #### G LF, GL1, GL2, GL3 #### [address] [address] .GFRon 04-27-2019 GFR Non- 186 ml/min/1.73sqm Normal [facility] ([place]) Comment on above: Result Comment: GFR Population mean for , Non- Americans Ages 20-29 = 116 mL/min/1.73 sq.m. Ages 30-39 = 107 mL/min/1.73 sq.m. Ages 40-49 = 99 mL/min/1.73 sq.m. Ages 50-59 = 93 mL/min/1.73 sq.m. Ages 60-69 = 85 mL/min/1.73 sq.m. Ages 70+ = 75 mL/min/1.73 sq.m. Chronic Kidney Disease: Less than 60 mL/min/1.73 square meters End Stage Renal Disease: Less than 15 mL/min/1.73 square meters Performed By: #### G LF, GL1, GL2, GL3 #### [address] [address] GFR 225 ml/min/1.73sqm Normal [facility] ([place]) Comment on above: Result Comment: GFR Population mean for , Non- Americans Ages 20-29 = 116 mL/min/1.73 sq.m. Ages 30-39 = 107 mL/min/1.73 sq.m. Ages 40-49 = 99 mL/min/1.73 sq.m. Ages 50-59 = 93 mL/min/1.73 sq.m. Ages 60-69 = 85 mL/min/1.73 sq.m. Ages 70+ = 75 mL/min/1.73 sq.m. Chronic Kidney Disease: Less than 60 mL/min/1.73 square meters End Stage Renal Disease: Less than 15 mL/min/1.73 square meters Performed By: #### G LF, GL1, GL2, GL3 #### [address] [address] .NEUABSon 04-27-2019 Neutrophils (Bld) [#/Vol] 6.90 10 3/mcL High 2.85-6.16 [facility] ([place] Comment on above: Performed By: #### G LF, GL1, GL2, GL3 #### [address] [address] BMPon 04-27-2019 Calcium [Mass/Vol] 8.4 mg/dL Normal 8.4-10.2 [facility] ([place]) Comment on above: Performed By: #### G LF, GL1, GL2, GL3 #### [address] [address] Chloride [Moles/Vol] 104 mmol/L Normal 98-107 [facility] ([place]) Comment on above: Performed By: #### G LF, GL1, GL2, GL3 #### [address] [address] CO2 [Moles/Vol] 23 mmol/L Normal 22-29 [facility] ([place] Comment on above: Performed By: #### G LF, GL1, GL2, GL3 #### [place] [address] Creatinine [Mass/Vol] 0.39 mg/dL Low 0.55-1.02 [facility] ([place]) Comment on above: Performed By: #### G LF, GL1, GL2, GL3 #### [address] [address] Electrolyte Balance 12.0 mEq/L Normal [facility] ([place]) Comment on above: Performed By: #### G LF, GL1, GL2, GL3 #### [address] [address] Glucose [Mass/Vol] 78 mg/dL Normal 70-105 [facility] ([place] Comment on above: Performed By: #### G LF, GL1, GL2, GL3 #### [address] [address] Potassium [Moles/Vol] 3.8 mmol/L Normal 3.5-5.1 [facility] ([place]) Comment on above: Performed By: #### G LF, GL1, GL2, GL3 #### [address] [address] Sodium [Moles/Vol] 139 mmol/L Normal 136-145 [facility] ([place]) Comment on above: Performed By: #### G LF, GL1, GL2, GL3 #### [address] [address] Urea nitrogen [Mass/Vol] 5 mg/dL Low 7-18 [facility] ([place] Comment on above: Performed By: #### G LF, GL1, GL2, GL3 #### [address] [address] Urea nitrogen/Creatinine [Mass ratio] 13 ratio Normal 7-27 [facility] ([place] Comment on above: Performed By: #### G LF, GL1, GL2, GL3 #### [address] [address] CBCon 04-27-2019 Erythrocyte distribution width (RBC) [Ratio] 16.0 % High 11.5-14.5 [facility] ([place] Comment on above: Performed By: #### G LF, GL1, GL2, GL3 #### [place] [address] Hematocrit (Bld) [Volume fraction] 31.6 % Low 37.0-47.0 [facility] ([place] Comment on above: Performed By: #### G LF, GL1, GL2, GL3 #### [place] [address] Hemoglobin (Bld) [Mass/Vol] 10.2 G/dL Low 12.0-16.0 [facility] ([place] Comment on above: Performed By: #### G LF, GL1, GL2, GL3 #### [place] [address] MCH (RBC) [Entitic mass] 23.4 pg Low 27.0-31.2 [facility] ([place] Comment on above: Performed By: #### G LF, GL1, GL2, GL3 #### [place] [address] MCHC (RBC) [Mass/Vol] 32.3 G/dL Low 33.0-37.0 [facility] ([place]) Comment on above: Performed By: #### G LF, GL1, GL2, GL3 #### [place] [address] MCV (RBC) [Entitic vol] 72.5 fL Low 80.0-94.0 [facility] ([place]) Comment on above: Performed By: #### G LF, GL1, GL2, GL3 #### [place] [address] Platelet mean volume (Bld) [Entitic vol] 8.2 fL Normal 7.4-10.4 [facility] ([place] Comment on above: Performed By: #### G LF, GL1, GL2, GL3 #### [place] [address] Platelets (Bld) [#/Vol] 311 10 3/mcL Normal 130-400 [facility] ([place] Comment on above: Performed By: #### G LF, GL1, GL2, GL3 #### [place] [address] RBC (Bld) [#/Vol] 4.35 10 6/mcL Normal 4.20-5.40 [facility] ([place]) Comment on above: Performed By: #### G LF, GL1, GL2, GL3 #### [place] [id number] WBC (Bld) [#/Vol] 9.70 10 3/mcL Normal 4.60-10.80 [facility] ([place]) Comment on above: Performed By: #### G LF, GL1, GL2, GL3 #### [place] [address] Gel ABOon 04-27-2019 ABO/Rh Interp Negative [facility] ([place] Comment on above: Performed By: #### G LF, GL1, GL2, GL3 #### [place] [address] Gel ABSon 04-27-2019 Antibody Screen Gel Negative Normal [facility] ([place]) Comment on above: Performed By: #### G LF, GL1, GL2, GL3 #### [place] [address] MGon 04-27-2019 Magnesium [Mass/Vol] 1.5 mg/dL Low 1.8-2.4 [facility] ([place]) Comment on above: Performed By: #### G LF, GL1, GL2, GL3 #### [place] [address] URINon 04-27-2019 Color (U) Yellow Normal [facility] ([place] Comment on above: Performed By: #### G LF, GL1, GL2, GL3 #### [place] [address] Glucose (U) [Mass/Vol] Negative Normal Negative [facility] ([place] Comment on above: Performed By: #### G LF, GL1, GL2, GL3 #### [place] [address] Ketones Ql (U) 80 mg/dL Negative [facility] ([place] Comment on above: Performed By: #### G LF, GL1, GL2, GL3 #### [place] [address] Protein (U) [Mass/Vol] Negative Normal Negative [facility] ([place] Comment on above: Performed By: #### G LF, GL1, GL2, GL3 #### [place] [address] UA Appear Clear Normal Clear [facility] ([place] Comment on above: Performed By: #### G LF, GL1, GL2, GL3 #### [place] [address] UA Blood Small Negative [facility] ([place] Comment on above: Performed By: #### G LF, GL1, GL2, GL3 #### [place] [address] UA Leuk Est Negative Normal Negative [facility] ([place] Comment on above: Performed By: #### G LF, GL1, GL2, GL3 #### [place] [address] UA Nitrite Negative Normal Negative [facility] ([place] Comment on above: Performed By: #### G LF, GL1, GL2, GL3 #### [place] [address] UA pH 5.5 Normal 5.0 - 8.0 [facility] ([place] Comment on above: Performed By: #### G LF, GL1, GL2, GL3 #### [place] [address] UA Spec Grav 1.020 Normal 1.015-1.025 [facility] ([place] Comment on above: Performed By: #### G LF, GL1, GL2, GL3 #### [place] [address] UA Specimen Type Void Normal [facility] ([place] Comment on above: Performed By: #### G LF, GL1, GL2, GL3 #### [address] [address] UA Urobilinogen 0.2 E.U./dL Normal 0.2-1.0 [facility] ([place] Comment on above: Performed By: #### G LF, GL1, GL2, GL3 #### [address] [address] Urobilinogen Qn (U) Negative Normal Negative [facility] ([place] Comment on above: Performed By: #### G LF, GL1, GL2, GL3 #### [address] [address] Color (U) Yellow Normal [facility] ([place]) Comment on above: Performed By: #### G LF, GL1, GL2, GL3 #### [address] [address] Glucose (U) [Mass/Vol] Negative Normal Negative [facility] ([place] Comment on above: Performed By: #### G LF, GL1, GL2, GL3 #### [address] [address] Ketones Ql (U) 40 mg/dL Negative [facility] ([place] Comment on above: Performed By: #### G LF, GL1, GL2, GL3 #### [address] [address] Protein (U) [Mass/Vol] Negative Normal Negative [facility] ([place] Comment on above: Performed By: #### G LF, GL1, GL2, GL3 #### [address] [address] UA Appear Clear Normal Clear [facility] [place] Comment on above: Performed By: #### G LF, GL1, GL2, GL3 #### [address] [address] UA Blood Small Negative [facility] ([place] Comment on above: Performed By: #### G LF, GL1, GL2, GL3 #### [address] [address] UA Leuk Est Negative Normal Negative [facility] ([place] Comment on above: Performed By: #### G LF, GL1, GL2, GL3 #### [address] [address] UA Nitrite Negative Normal Negative [facility] [place] Comment on above: Performed By: #### G LF, GL1, GL2, GL3 #### [address] [address] UA pH 5.5 Normal 5.0 - 8.0 [facility] ([place] Comment on above: Performed By: #### G LF, GL1, GL2, GL3 #### [place] [address] UA Spec Grav 1.015 Normal 1.015-1.025 [facility] ([place] Comment on above: Performed By: #### G LF, GL1, GL2, GL3 #### [place] [address] UA Specimen Type Void Normal [facility] [place] Comment on above: Performed By: #### G LF, GL1, GL2, GL3 #### [place] [address] UA Urobilinogen 0.2 E.U./dL Normal 0.2-1.0 [facility] ([place] Comment on above: Performed By: #### G LF, GL1, GL2, GL3 #### [place] [address] Urobilinogen Qn (U) Negative Normal Negative [facility] ([place] Comment on above: Performed By: #### G LF, GL1, GL2, GL3 #### [place] [address] Color (U) Yellow Normal [facility] [place] Comment on above: Performed By: #### G LF, GL1, GL2, GL3 #### [place] [address] Glucose (U) [Mass/Vol] Negative Normal Negative [facility] ([place] Comment on above: Performed By: #### G LF, GL1, GL2, GL3 #### [place] [address] Ketones Ql (U) 15 mg/dL Negative [facility] ([place] Comment on above: Performed By: #### G LF, GL1, GL2, GL3 #### [place] [address] Protein (U) [Mass/Vol] Negative Normal Negative [facility] ([place] Comment on above: Performed By: #### G LF, GL1, GL2, GL3 #### [place] [address] UA Appear Slightly Cloudy Clear [facility] ([place] Comment on above: Performed By: #### G LF, GL1, GL2, GL3 #### [place] [address] UA Blood Negative Normal Negative [facility] [place] Comment on above: Performed By: #### G LF, GL1, GL2, GL3 #### [place] [address] UA Leuk Est Negative Normal Negative [facility] [place] Comment on above: Performed By: #### G LF, GL1, GL2, GL3 #### [place] [address] UA Nitrite Negative Normal Negative [facility] [place] Comment on above: Performed By: #### G LF, GL1, GL2, GL3 #### [place] [address] UA pH 5.5 Normal 5.0 - 8.0 [facility] ([place] Comment on above: Performed By: #### G LF, GL1, GL2, GL3 #### [place] [address] UA Spec Grav 1.010 1.015-1.025 [facility] ([place] Comment on above: Performed By: #### G LF, GL1, GL2, GL3 #### [place] [address] UA Specimen Type Void Normal [facility] ([place] Comment on above: Performed By: #### G LF, GL1, GL2, GL3 #### [place] [address] UA Urobilinogen 0.2 E.U./dL Normal 0.2-1.0 [facility] ([place] Comment on above: Performed By: #### G LF, GL1, GL2, GL3 #### [place] [address] Urobilinogen Qn (U) Negative Normal Negative [facility] ([place] Comment on above: Performed By: #### G LF, GL1, GL2, GL3 #### [place] [address] A1Con 04-14-2019 HbA1c (Bld) [Mass fraction] 5.6 % Normal 4.5-6.2 [facility] ([place] Comment on above: Performed By: #### G LF, GL1, GL2, GL3 #### [place] [address] HGMPon 04-14-2019 Erythrocyte distribution width (RBC) [Ratio] 15.3 % High 11.5-14.5 [facility] ([place] Comment on above: Performed By: #### G LF, GL1, GL2, GL3 #### [place] [address] Hematocrit (Bld) [Volume fraction] 32.2 % Low 37.0-47.0 [facility] ([place] Comment on above: Performed By: #### G LF, GL1, GL2, GL3 #### [place] [address] Hemoglobin (Bld) [Mass/Vol] 10.5 G/dL Low 12.0-16.0 [facility] ([place] Comment on above: Performed By: #### G LF, GL1, GL2, GL3 #### [place] [address] MCH (RBC) [Entitic mass] 23.9 pg Low 27.0-31.2 [facility] ([place] Comment on above: Performed By: #### G LF, GL1, GL2, GL3 #### [place] [address] MCHC (RBC) [Mass/Vol] 32.7 G/dL Low 33.0-37.0 [facility] ([place] Comment on above: Performed By: #### G LF, GL1, GL2, GL3 #### [place] [address] MCV (RBC) [Entitic vol] 73.1 fL Low 80.0-94.0 [facility] ([place] Comment on above: Performed By: #### G LF, GL1, GL2, GL3 #### [place] [address] Platelet mean volume (Bld) [Entitic vol] 8.3 fL Normal 7.4-10.4 [facility] [place] Comment on above: Performed By: #### G LF, GL1, GL2, GL3 #### [place] [address] Platelets (Bld) [#/Vol] 340 10 3/mcL Normal 130-400 [facility] ([place] Comment on above: Performed By: #### G LF, GL1, GL2, GL3 #### [place] [address] RBC (Bld) [#/Vol] 4.41 10 6/mcL Normal 4.20-5.40 [facility] ([place] Comment on above: Performed By: #### G LF, GL1, GL2, GL3 #### [place] [address] WBC (Bld) [#/Vol] 9.40 10 3/mcL Normal 4.60-10.80 [facility] ([place] Comment on above: Performed By: #### G LF, GL1, GL2, GL3 #### [place] [address] GBPCRon 04-09-2019 GBPCR . MICRO - Microbiology PROCEDURE: Group B Strep PCR [*1] SOURCE: Vaginal Rectal BODY SITE: COLLECTED DATE/TIME: 04/07/2019 15:34 EDT RECEIVED DATE/TIME: 04/07/2019 20:27 EDT START DATE/TIME: 04/07/2019 20:27 EDT FREE TEXT SOURCE: FINAL REPORTS Final Report [] Verified Date/Time/Personnel: 04/09/2019 10:41 EDT GBS NEGATIVE. Group B Streptococcus DNA not detected by Real-Time. Polymerase Chain Reaction (PCR). A negative result does not rule out the possibility of Group B Streptococcus False negative results may occur when Group B Streptococcus concentration is below the level of detection of 200 CFU/mL of sample preparation reagent. If the patient has signs or symptoms of infection, other laboratory tests and clinical information should be used to confirm the negative result. This test is not intended to differentiate carriers of Group B Streptococcus from those with Streptococcus disease. Performing Locations *1: This test was performed at: [address], [address] [place] [address] Normal [facility] ([place] Comment on above: Performed By: #### G LF, GL1, GL2, GL3 #### [place] [address] .Urinalysis Microscopic (AO) on 03-26-2019 RBC (U) [#/Vol] None Seen Normal None Seen [facility] ([place] Comment on above: Performed By: #### G LF, GL1, GL2, GL3 #### [place] [address] UA Bacteria Trace [facility] ([place] Comment on above: Performed By: #### G LF, GL1, GL2, GL3 #### [place] [address] UA Squam Epithelial 0-5 None Seen [facility] ([place] Comment on above: Performed By: #### G LF, GL1, GL2, GL3 #### [place] [address] UA WBC 15-25 None Seen [facility] ([place] Comment on above: Performed By: #### G LF, GL1, GL2, GL3 #### [address] [address] UAon 03-26-2019 Color (U) Yellow Normal [facility] ([place] Comment on above: Performed By: #### G LF, GL1, GL2, GL3 #### [place] [address] Glucose (U) [Mass/Vol] Negative Normal Negative [facility] ([place] Comment on above: Performed By: #### G LF, GL1, GL2, GL3 #### [place] [address] Ketones Ql (U) 40 mg/dL Negative [facility] ([place]) Comment on above: Performed By: #### G LF, GL1, GL2, GL3 #### [place] [address] UA Appear Clear Normal Clear [facility] ([place] Comment on above: Performed By: #### G LF, GL1, GL2, GL3 #### [place] [address] UA Blood Negative Normal Negative [facility] ([place] Comment on above: Performed By: #### G LF, GL1, GL2, GL3 #### [place] [address] UA Leuk Est Moderate Negative [facility] ([place] Comment on above: Performed By: #### G LF, GL1, GL2, GL3 #### [place] [address] UA Nitrite Negative Normal Negative [facility] ([place] Comment on above: Performed By: #### G LF, GL1, GL2, GL3 #### [place] [address] UA pH 5.5 Normal 5.0 - 8.0 [facility] ([place] Comment on above: Performed By: #### G LF, GL1, GL2, GL3 #### [place] [address] UA Protein Negative Normal Negative [facility] ([place]) Comment on above: Performed By: #### G LF, GL1, GL2, GL3 #### [place] [address] UA Spec Grav 1.020 Normal 1.015-1.025 [facility] ([place] Comment on above: Performed By: #### G LF, GL1, GL2, GL3 #### [place] [address] UA Specimen Type Void Normal [facility] ([place] Comment on above: Performed By: #### G LF, GL1, GL2, GL3 #### [place] [address] UA Urobilinogen 0.2 E.U./dL Normal 0.2-1.0 [facility] ([place] Comment on above: Performed By: #### G LF, GL1, GL2, GL3 #### [place] [address] Urobilinogen Qn (U) Negative Normal Negative [facility] ([place] Comment on above: Performed By: #### G LF, GL1, GL2, GL3 #### [place] [address] CURon 02-28-2019 CUR . MICRO - Microbiology PROCEDURE: Urine Culture [*1] SOURCE: Urine BODY SITE: COLLECTED DATE/TIME: 02/26/2019 10:27 EDT RECEIVED DATE/TIME: 02/26/2019 19:58 EDT START DATE/TIME: 02/26/2019 19:58 EDT FREE TEXT SOURCE: FINAL REPORTS Final Report [] Verified Date/Time/Personnel: 02/28/2019 08:39 EDT 75,000 organisms per mL Mixed without predominant isolate(s). Sensitivity Testing not indicated. Probably contamination. Repeat culture suggested. PRELIMINARY REPORTS Preliminary Report [] Verified Date/Time/Personnel: 02/27/2019 13:11 EDT Culture results pending. Performing Locations *1: This test was performed at: [facility], [address] [place], [place] [address] Normal [facility] ([place] Comment on above: Performed By: #### G LF, GL1, GL2, GL3 #### [place] [id number] Gel ABOon 02-11-2019 ABO/Rh Interp Negative [facility] ([place] Comment on above: Performed By: #### G LF, GL1, GL2, GL3 #### [place] [address] Gel ABSon 02-11-2019 Antibody Screen Gel Negative Normal [facility] ([place] Comment on above: Performed By: #### G LF, GL1, GL2, GL3 #### [place] [address] HBSAGon 01-21-2019 Hep B Surf Ag Negative Normal Negative [facility] ([place] Comment on above: Performed By: #### G LF, GL1, GL2, GL3 #### [place] [address] RPRon 01-21-2019 Reagin Ab RPR Ql (S) Non-Reactive Normal Non-Reactive [facility] ([place] Comment on above: Result Comment: The RPR test is a non-treponemal assay useful as an aid in the diagnosis of primary and secondary syphilis. It converts to positive generally within 2 weeks after the appearance of a lesion. This test is also useful for monitoring response to antibiotic therapy. A positive RPR screening test will be followed by the FTA ABS test. False positive RPR tests may occur in 1) patients with underlying autoimmune disorders, 2) elderly patients, 3) , and 4) other conditions with abnormal serum globulins. Performed By: #### G LF, GL1, GL2, GL3 #### [place] [address] RUBISon 01-21-[address] Positive Normal Positive [facility] ([place] Comment on above: Result Comment: This immune status assay detects IgM and/or IgG antibody to Rubella. Interpret results in conjunction with clinical history. POS: Antibody detected; exposure at undetermined recent or distant time. If clinically indicated, order Rubella IGM to rule out recent infection. NEG: No antibody detected. Performed By: #### G LF, GL1, GL2, GL3 #### [address] [address] .Auto Diffon 01-20-2019 Ammonia (P) [Mass/Vol] 0.60 10 3/mcL Normal 0.15-1.00 [facility] ([place]) Comment on above: Performed By: #### C BC, ADIFF, ANEU, ABOG, ANSG #### [place] [address] #### TSH, FT4, FT3, GLU, RUBIS, RPR, HBSAG #### [address] [address] Basophils (Bld) [#/Vol] 0.00 10 3/mcL Normal 0.00-0.19 [facility] ([place] Comment on above: Performed By: #### C BC, ADIFF, ANEU, ABOG, ANSG #### [place] [address] #### TSH, FT4, FT3, GLU, RUBIS, RPR, HBSAG #### [address] [address] Basophils/100 WBC (Bld) 0.4 % Normal 0.0-2.5 [facility] ([place] Comment on above: Performed By: #### C BC, ADIFF, ANEU, ABOG, ANSG #### [place] [address] #### TSH, FT4, FT3, GLU, RUBIS, RPR, HBSAG #### [address] [address] Eosinophils (Bld) [#/Vol] 0.20 10 3/mcL Normal 0.00-0.40 [facility] ([place] Comment on above: Performed By: #### C BC, ADIFF, ANEU, ABOG, ANSG #### [place] [address] #### TSH, FT4, FT3, GLU, RUBIS, RPR, HBSAG #### [address] [address] Eosinophils/100 WBC (Bld) 1.5 % Normal 0.0-7.0 [facility] ([place] Comment on above: Performed By: #### C BC, ADIFF, ANEU, ABOG, ANSG #### [address] [address] #### TSH, FT4, FT3, GLU, RUBIS, RPR, HBSAG #### [address] [address] Lymphocytes (Bld) [#/Vol] 1.80 10 3/mcL Normal 0.77-3.85 [facility] ([place] Comment on above: Performed By: #### C BC, ADIFF, ANEU, ABOG, ANSG #### [address] [address] #### TSH, FT4, FT3, GLU, RUBIS, RPR, HBSAG #### [address] [address] Lymphocytes/100 WBC (Bld) 17.1 % Normal 10.0-50.0 [facility] ([place] Comment on above: Performed By: #### C BC, ADIFF, ANEU, ABOG, ANSG #### [address] [address] #### TSH, FT4, FT3, GLU, RUBIS, RPR, HBSAG #### [address] [address] Monocytes/100 WBC (Bld) 5.5 % Normal 1.7-13.0 [facility] ([place] Comment on above: Performed By: #### C BC, ADIFF, ANEU, ABOG, ANSG #### [address] [address] #### TSH, FT4, FT3, GLU, RUBIS, RPR, HBSAG #### [address] [address] Neutrophils/100 WBC (Bld) 75.5 % Normal 37.0-80.0 [facility] ([place] Comment on above: Performed By: #### C BC, ADIFF, ANEU, ABOG, ANSG #### [place] [address] #### TSH, FT4, FT3, GLU, RUBIS, RPR, HBSAG #### [place] [address] .NEUABSon 01-20-2019 Neutrophils (Bld) [#/Vol] 7.90 10 3/mcL High 2.85-6.16 [facility] ([place] Comment on above: Performed By: #### C BC, ADIFF, ANEU, ABOG, ANSG #### [place] [address] #### TSH, FT4, FT3, GLU, RUBIS, RPR, HBSAG #### [place] [address] CBCon 01-20-2019 Erythrocyte distribution width (RBC) [Ratio] 15.3 % High 11.5-14.5 [facility] ([place] Comment on above: Performed By: #### C BC, ADIFF, ANEU, ABOG, ANSG #### [place] [address] #### TSH, FT4, FT3, GLU, RUBIS, RPR, HBSAG #### [place] [address] Hematocrit (Bld) [Volume fraction] 37.8 % Normal 37.0-47.0 [facility] ([place] Comment on above: Performed By: #### C BC, ADIFF, ANEU, ABOG, ANSG #### [place] [address] #### TSH, FT4, FT3, GLU, RUBIS, RPR, HBSAG #### [place] [address] Hemoglobin (Bld) [Mass/Vol] 12.4 G/dL Normal 12.0-16.0 [facility] [place] Comment on above: Performed By: #### C BC, ADIFF, ANEU, ABOG, ANSG #### [place] [address] #### TSH, FT4, FT3, GLU, RUBIS, RPR, HBSAG #### [address] [address] MCH (RBC) [Entitic mass] 25.2 pg Low 27.0-31.2 [facility] ([place] Comment on above: Performed By: #### C BC, ADIFF, ANEU, ABOG, ANSG #### [place] [address] #### TSH, FT4, FT3, GLU, RUBIS, RPR, HBSAG #### [place] [id number] MCHC (RBC) [Mass/Vol] 32.8 G/dL Low 33.0-37.0 [facility] ([place] Comment on above: Performed By: #### C BC, ADIFF, ANEU, ABOG, ANSG #### [place] [address] #### TSH, FT4, FT3, GLU, RUBIS, RPR, HBSAG #### [place] [id number] MCV (RBC) [Entitic vol] 77.0 fL Low 80.0-94.0 [facility] ([place] Comment on above: Performed By: #### C BC, ADIFF, ANEU, ABOG, ANSG #### [place] [address] #### TSH, FT4, FT3, GLU, RUBIS, RPR, HBSAG #### [place] [address] Platelet mean volume (Bld) [Entitic vol] 8.4 fL Normal 7.4-10.4 [facility] ([place] Comment on above: Performed By: #### C BC, ADIFF, ANEU, ABOG, ANSG #### [place] [address] #### TSH, FT4, FT3, GLU, RUBIS, RPR, HBSAG #### [address] [address] Platelets (Bld) [#/Vol] 321 10 3/mcL Normal 130-400 [facility] ([place] Comment on above: Performed By: #### C BC, ADIFF, ANEU, ABOG, ANSG #### [address] [address] #### TSH, FT4, FT3, GLU, RUBIS, RPR, HBSAG #### [address] [address] RBC (Bld) [#/Vol] 4.91 10 6/mcL Normal 4.20-5.40 [facility] ([place] Comment on above: Performed By: #### C BC, ADIFF, ANEU, ABOG, ANSG #### [address] [address] #### TSH, FT4, FT3, GLU, RUBIS, RPR, HBSAG #### [address] [address] WBC (Bld) [#/Vol] 10.40 10 3/mcL Normal 4.60-10.80 [facility] ([place] Comment on above: Performed By: #### C BC, ADIFF, ANEU, ABOG, ANSG #### [address] [address] #### TSH, FT4, FT3, GLU, RUBIS, RPR, HBSAG #### [place] [address] FT3on 01-20-2019 Free T3 [Mass/Vol] 3.14 pg/mL Normal 2.30-4.00 [facility] ([place] Comment on above: Performed By: #### G LF, GL1, GL2, GL3 #### [place] [address] FT4on 01-20-2019 Free T4 [Mass/Vol] 1.11 ng/dL Normal 0.76-1.46 [facility] ([place] Comment on above: Performed By: #### G LF, GL1, GL2, GL3 #### [place] [address] GLUon 01-20-2019 Glucose [Mass/Vol] 81 mg/dL Normal 70-105 [facility] ([place] Comment on above: Performed By: #### G LF, GL1, GL2, GL3 #### [place] [address] Gel ABOon 01-20-2019 ABO/Rh Interp Negative [facility] ([place] Comment on above: Performed By: #### C BC, ADIFF, ANEU, ABOG, ANSG #### [place] [address] #### TSH, FT4, FT3, GLU, RUBIS, RPR, HBSAG #### [place] [address] Gel ABSon 01-20-2019 Antibody Screen Gel Negative Normal [facility] ([place] Comment on above: Performed By: #### C BC, ADIFF, ANEU, ABOG, ANSG #### [place] [address] #### TSH, FT4, FT3, GLU, RUBIS, RPR, HBSAG #### [place] [address] TSHon 01-20-2019 TSH Qn 1.55 mcIU/mL Normal 0.36-3.74 [facility] ([place] Comment on above: Performed By: #### G LF, GL1, GL2, GL3 #### [place] [address] GL1on 10-03-2018 Glucose [Mass/Vol] 193 mg/dL High 120-190 [facility] ([place] Comment on above: Performed By: #### G LF, GL1, GL2, GL3 #### [place] [address] GL2on 10-03-2018 Glucose [Mass/Vol] 161 mg/dL Normal 70-165 [facility] ([place] Comment on above: Performed By: #### G LF, GL1, GL2, GL3 #### [place] [address] GL3on 10-03-2018 Glucose [Mass/Vol] 76 mg/dL Normal 70-145 [facility] ([place] Comment on above: Performed By: #### G LF, GL1, GL2, GL3 #### [place] [address] GLFon 10-03-2018 Glucose [Mass/Vol] 103 mg/dL Normal 83-110 [facility] ([place] Comment on above: Performed By: #### G LF, GL1, GL2, GL3 #### [place] [address] PYI9Pon 09-09-2018 Glucose [Mass/Vol] 150 mg/dL High 70-140 [facility] ([place] Comment on above: Performed By: #### G LU1P #### [place] [address] OBSOLETEon 08-04-2017 OBSOLETE Refill (AGENDOG) ---------NINI OAKES EA ([id number]) 1980 FDate Time Provider Pxhhfnnyil74/1/17 KATIE LENZ AGENDOG During your visit today, we recorded the following information about you:Ellen Webb MA 08/05/2017 8:45 AM SignedLast Visit date: 04/16/2017Future appointment: Kellie Jhaveri As of Date: 08/04/2017(No Known Allergies)Date Reviewed: 04/16/2017Reviewed by: Roshni Donnelly - Fully AssessedReason for Visit: Refill Request [94]Order(s):SYNTHRO ID 50 mcg tabletTAKE 1 TABLET EVERY DAYDisp: 30 tabletRfl: 8Prescriptions as of 08/04/2017 Sig: SYNTHROID 50 MCG TABLET TAKE 1 TABLET EVERY DAY SYNTHROID 50 MCG TABLET TAKE 1 TABLET EVERY DAY SYNTHROID 50 MCG TABLET Take 1 tablet by mouth once d* WOMEN'S MULTI ORAL Take by mouth once daily. 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 Thyroid dysfunction in [O99.280, E07.* Goiter, nontoxic, multinodular [E04.2] PCOS (polycystic ovarian syndrome) [E28.2] History of gestational diabetes [Z86.32] INVALID FOR*Prescriptions ordered this encounter Disp Refills Start End SYNTHROID 50 MCG TABLET 30 t* 8 08/05/2017 Sig: TAKE 1 TABLET EVERY DAYEncounter Number: [id number] Status:Closed by ROSHNI DONNELLY DO on 08/05/17 [facility] OBSOLETEon 05-29-2017 OBSOLETE Refill (AGENDOG) ---------NINI OAKES EA ([id number]) 1980 FDate Time Provider Department05/29/17 KATIE LENZ AGENDOG During your visit today, we recorded the following information about you:Ellen Webb 05/29/2017 12:40 PM SignedLast Visit date: 04/16/2017Future appointment: Denisse Cummings As of Date: 05/29/2017(No Known Allergies)Date Reviewed: 04/16/2017Reviewed by: Roshni Donnelly - Fully AssessedReason for Visit: Refill Request [94]Order(s):SYNTHRO ID 50 mcg tabletTAKE 1 TABLET EVERY DAYDisp: 30 tabletRfl: 11Prescriptions as of 05/29/2017 Sig: SYNTHROID 50 MCG TABLET TAKE 1 TABLET EVERY DAY SYNTHROID 50 MCG TABLET Take 1 tablet by mouth once d* WOMEN'S MULTI ORAL Take by mouth once daily. 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 Thyroid dysfunction in [O99.280, E07.* Goiter, nontoxic, multinodular [E04.2] PCOS (polycystic ovarian syndrome) [E28.2] History of gestational diabetes [Z86.32] INVALID FOR*Prescriptions ordered this encounter Disp Refills Start End SYNTHROID 50 MCG TABLET 30 t* 11 05/29/2017 Sig: TAKE 1 TABLET EVERY DAYEncounter Number: [id number] Status:Closed by KATIE LENZ MD on 05/29/17 [facility] OBSOLETEon 05-16-2017 OBSOLETE Refill (AGENDOG) ---------NINI OAKES EA ([id number]) 1980 FDate Time Provider Department05/16/17 KATIE LENZ AGENDOG During your visit today, we recorded the following information about you:Ellen Webb) 05/16/2017 10:47 AM SignedLast Visit date: 04/16/2017Future appointment: Roshni Brian Ma 05/17/2017 8:18 AM SignedI sent Rx at visit one month ago with 11 refills. It looks like pharmacyreceived it. Why am I getting refill request?Roberto Strickland Laura 05/17/2017 9:04 AM SignedPt is using 2 different pharmacies. [place]. Looks like [facility] requesting and then deleted request. I spoke to pharmacist at [facility].Allergi es As of Date: 05/16/2017(No Known Allergies)Date Reviewed: 04/16/2017Reviewed by: Roshni Donnelly - Fully AssessedReason for Visit: Refill Request [94]Prescriptions as of 05/16/2017 Sig: SYNTHROID 50 MCG TABLET Take 1 tablet by mouth once d* WOMEN'S MULTI ORAL Take by mouth once daily. 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 Thyroid dysfunction in [O99.280, E07.* Goiter, nontoxic, multinodular [E04.2] PCOS (polycystic ovarian syndrome) [E28.2] History of gestational diabetes [Z86.32] INVALID FOR* Status:Closed by ROSHNI TIWARI on 03/06/18 [facility] Vital Signs Date Time Vital Sign Value Performing Clinician Acosta pete 05-12-2025 12:37-0400 Body height 172.[address] Edil Dean MD Work Phone: [facility] 05-12-2025 12:37-0400 Body mass index (BMI) [Ratio] 30.2 kg/m2 Dr. Edil eDan MD Work Phone: [facility] 05-12-2025 12:37-0400 Body temperature 97.2 [degF] Dr. Edil Dean MD Work Phone: [facility] 05-12-2025 12:37-0400 Body weight 90.[address] Edil Dean MD Work Phone: [facility] 05-12-2025 12:37-0400 Diastolic blood pressure 78 mm[Hg] Dr. Edil Dean MD Work Phone: [facility] 05-12-2025 12:37-0400 Heart rate 70 /min Dr. Edil Dean MD Work Phone: [facility] 05-12-2025 12:37-0400 Respiratory rate 16 /min Dr. Edil Dean MD Work Phone: [facility] 05-12-2025 12:37-0400 SaO2% (BldA) [Mass fraction] 99 % Dr. Edil Dean MD Work Phone: [facility] 05-12-2025 12:37-0400 Systolic blood pressure 126 mm[Hg] Dr. Edil Dean MD Work Phone: [facility] 08-31-2024 09:36-0400 Body mass index (BMI) [Ratio] 32.38 kg/m2 Krislyn Aberegg PA Work Phone: [facility] 08-31-2024 09:36-0400 Body temperature 97 [degF] Krislyn Aberegg PA Work Phone: [facility] 08-31-2024 09:36-0400 Body weight 95.9 kg Krislyn Aberegg PA Work Phone: [facility] 08-31-2024 09:36-0400 Diastolic blood pressure 80 mm[Hg] Krislyn Aberegg PA Work Phone: [facility] 08-31-2024 09:36-0400 Heart rate 82 /min Krislyn Aberegg PA Work Phone: [facility] 08-31-2024 09:36-0400 Respiratory rate 16 /min Krislyn Aberegg PA Work Phone: [facility] 08-31-2024 09:36-0400 SaO2% (BldA) [Mass fraction] 99 % Krislyn Aberegg PA Work Phone: [facility] 08-31-2024 09:36-0400 Systolic blood pressure 124 mm[Hg] Jake MUNIZ Work Phone: [facility] 07-27-2022 09:39-0400 Body temperature 97.9 [degF] Olga Jordan THEATRE INSTRUCTOR.GOLD BUYER Work Phone: [facility] 07-27-2022 09:39-0400 Body weight 124.56 kg Olga Jordan THEATRE INSTRUCTOR.GOLD BUYER Work Phone: [facility] 07-27-2022 09:39-0400 Diastolic blood pressure 80 mm[Hg] Olga Jordan THEATRE INSTRUCTOR.GOLD BUYER Work Phone: [facility] 07-27-2022 09:39-0400 Heart rate 66 /min Olga Jordan THEATRE INSTRUCTOR.GOLD BUYER Work Phone: [facility] 07-27-2022 09:39-0400 Respiratory rate 18 /min Olga Jordan THEATRE INSTRUCTOR.GOLD BUYER Work Phone: [facility] 07-27-2022 09:39-0400 SaO2% (BldA) [Mass fraction] 98 % Olga Jordan THEATRE INSTRUCTOR.GOLD BUYER Work Phone: [facility] 07-27-2022 09:39-0400 Systolic blood pressure 118 mm[Hg] Olga Jordan THEATRE INSTRUCTOR.GOLD BUYER Work Phone: [facility] Encounters Encounter Date Encounter Type Care Provider Facility Start: 08-24-2025 End: 08-24-2025 ambulatory Olga Bryanterer Facility:[facility] Start: 05-12-2025 End: 05-12-[address] Edil Dean MD Work Phone: -[facility] Start: 05-12-2025 End: 05-12-2025 Patient encounter procedure Ton MUNIZ -[facility] Work Phone: Start: 03-08-2025 End: 03-08-2025 ambulatory ALYSE JAMES THEATRE INSTRUCTOR-GOLD BUYER Facility:[facility] Start: 03-08-2025 End: 03-08-2025 Patient encounter procedure ALYSE BORJASGOLD BUYER [facility] Start: 03-04-2025 End: 03-08-2025 ambulatory ALYSE JAMES THEATRE INSTRUCTOR-GOLD BUYER Facility:[facility] Start: 03-04-2025 End: 03-08-2025 Outreach Lab ALYSE JAMES THEATRE INSTRUCTOR-GOLD BUYER [facility] Start: 08-31-2024 End: 08-31-2024 ambulatory EDIL DEAN Facility:[facility] Start: 08-31-2024 End: 08-31-2024 Patient encounter procedure Jake MUNIZ Work Phone: [facility] Comment on above: Bacterial sinusitis (Primary Dx) Start: 06-28-2023 End: 06-28-[address] Edil Dean Work Phone: [facility] Work Phone: Start: 06-28-2023 End: 06-28-[address] Edil Dean Work Phone: [facility] Work Phone: Start: 05-13-2023 End: 05-13-[address] Edil Dean Work Phone: [facility] Work Phone: Start: 07-27-2022 End: 07-27-2022 Patient encounter procedure Olga Jordan APRN.GOLD BUYER Work Phone: [facility] Comment on above: Cellulitis of right arm (Primary Dx) Start: 05-18-2022 End: 05-18-2022 Patient encounter procedure [facility] Procedures Date Procedure Procedure Detail Performing Clinician Start: 11-01-2016 Adult depression screening assessment Olga Jordan THEATRE INSTRUCTOR.GOLD BUYER Work Phone: Start: 01-02-2015 Cholecystectomy ALYSE JAMES THEATRE INSTRUCTOR-GOLD BUYER History of cholecystectomy Hx of cholecys tectomy Tooth extraction, multiple S ANTHONY JAMES THEATRE INSTRUCTOR-GOLD BUYER Plan of Treatment Date Care Activity Detail Author Start: 11-01-2024 Urine microalbumin profile [facility] Start: 07-05-2024 Covid-19 Vaccine ( season) Covid-19 Vaccine ( season) [facility] Start: 12-07-2022 Hepatitis B Vaccine (2 of 2 - CpG 2-dose series) Hepatitis B Vaccine (2 of 2 - CpG 2-dose series) [facility] Start: 07-05-2022 Influenza vaccination INFLUENZA (#1) [facility] Start: 2022 Mammography MAMMOGRAM [facility] Start: 2022 Screening for malign ant neoplasm of breast Mammogram Screening [facility] Start: 11-01-2017 Adult depression screening assessment DEPRESSION SCREENING [facility] Start: 06-12-2014 PAP TESTING PAP TESTING [facility] Start: 06-12-2014 Screening for malign ant neoplasm of cervix Cervical Cancer Screening [facility] Start: 2012 HPV TESTING HPV TESTING [facility] Start: 2000 Anxiety Screening Anxiety Screening [facility] Start: 2000 Depression Screening Depression Scre ening [facility] Start: 2000 HEPATITIS C SCREENING HEPATITIS C [facility] Start: 2000 Hepatitis C screening Hepatitis C [facility] Start: 2000 HIV SCREENING HIV SCREENING [facility] Start: 2000 HIV screening HIV Screening [facility] Start: 01-01-1983 COVID-19 VACCINE (#1) COVID-19 VACCI NE (#1) [facility] Start: 1982 HEPATITIS B (1 of 3 - 3-dose series) HEPATITIS B (1 of 3 - 3-dose series) [facility] CBC W Auto Different ial panel - Blood [facility] Comprehensive metabo lic 1999 panel - Serum or Plasma [facility] Hemoglobin A1c/Hemoglobin.total in Blood [facility] Lipid 1996 panel - S meena or Plasma [facility] Thyroid stimulating hormone measurement [facility] Vitamin D, 25-hydrox y measurement [facility] Immunizations Immunization Date Immunization Notes Care Provider Edy slade 07-31-2024 influenza, seasonal, injectable, preservative free Dr. Edil Dean MD Work Phone: [facility] 08-21-2023 influenza, injectabl e, quadrivalent, preservative free Dr. Edil Dean MD Work Phone: [facility] 11-27-2022 influenza, injectabl e, quadrivalent, preservative free Dr. Edil Dean MD Work Phone: [facility] 11-27-2022 influenza, seasonal, injectable Dr. Edil Dean Work Phone: [facility] 11-09-2022 Hepatitis B vaccine (recombinant), CpG adjuvanted Dr. Edil Dean Work Phone: [facility] 04-29-2019 tetanus toxoid, redu chay diphtheria toxoid, and acellular pertussis vaccine, adsorbed ALYSE JAMES THEATRE INSTRUCTOR-GOLD BUYER [facility] 11-01-2016 influenza, injectabl e, quadrivalent, contains preservative Loga Jordan THEATRE INSTRUCTOR.GOLD BUYER Work Phone: [facility] Work Phone: 11-01-2016 influenza, injectabl e, quadrivalent, preservative free Dr. Edil Dean MD Work Phone: [facility] 11-01-2016 influenza, seasonal, injectable Dr. Edil Dean Work Phone: [facility] 01-25-2016 influenza, injectabl e, quadrivalent, preservative free ALYSE JAMES THEATRE INSTRUCTOR-GOLD BUYER [facility] 01-25-2016 tetanus toxoid, redu chay diphtheria toxoid, and acellular pertussis vaccine, adsorbed ALYSE JAMES THEATRE INSTRUCTOR-GOLD BUYER [facility] 11-01-2014 tetanus toxoid, redu chay diphtheria toxoid, and acellular pertussis vaccine, adsorbed Olga Jordan THEATRE INSTRUCTOR.GOLD BUYER Work Phone: [facility] Work Phone: 10-05-2014 tetanus toxoid, redu chay diphtheria toxoid, and acellular pertussis vaccine, adsorbed ALYSE JAMES THEATRE INSTRUCTOR-GOLD BUYER [facility] 09-11-2014 influenza, injectabl e, quadrivalent, preservative free Dr. Edil Dean MD Work Phone: [facility] 09-11-2014 influenza, seasonal, injectable Dr. Edil Dean Work Phone: [facility] Payers Date Payer Category Payer Self-pay [id number] 2021 Unknown [id number] 2021 Unknown [id number] 1980 Unknown [id number] 1980 Unknown [id number] Unknown [id number] Unknown [facility] [id number] Unknown [id number] Unknown [id number] Social History Date Type Detail Facility Start: 08-12-2019 End: 05-13-2023 Tobacco smoking status NCIS Unknown if ever smoked [facility] Start: 08-06-2019 Non-smoker [facility] Start: 1980 Sex Assigned At Female W [facility] Start: 04-10-2016 End: 08-20-2024 Tobacco smoking status NHIS Never smoked tobacco [facility] Start: 04-10-2016 End: 08-31-2024 Tobacco use and exposure Smokeless tobacco non-user [facility] Start: 07-27-2022 End: 08-31-2024 Alcohol intake Current non-drinker of alcohol (finding) [facility] Start: 1980 Sex Assigned At Not on file [facility] Start: 07-17-2022 End: 07-27-2022 Exposure to SARS-CoV-2 (event) Not sure [facility] Work Phone: Start: 10-12-2020 End: 08-31-2024 History of Social function [facility] Start: 10-12-2020 End: 08-31-2024 Tobacco use panel [facility] National Score (1-10 0), lower number is lower risk Not on file [facility] Sexual Orientation [place] [facility] Start: 01-07-2020 Sex Female (finding) [facility] Clinical Notes 07-27-2022 to 05-12-2025 Jake Mott PA - 08/31/2024 9:41 AM EDTPatient Niall Jordan APRN.CNP - 07/27/2022 9:45 AM EDTLaboratoryLaboratory Note Date & Type Note Facility 05-12-2025 Progress note [facility] 08-31-2024 Note HNO ID: [id number] Author: JAKE MOTT PA Service: ? Author Type: Physician Commercial Lending Relationship Manager Type: Progress Notes Filed: 08/31/2024 09:43 Note Text: This note was created using NoteWriter. Subjective Mikey Oakes is a 44 year old female. HPI 44-year-old female presents for nasal congestion, sinus pressure, sinus pain, cough x 2 weeks. Patient states that 2 weeks ago she started getting sick. She has sinus congestion, nasal drainage, postnasal drainage, cough. She states last night she started getting a lot of sinus pain and pain into her teeth from her sinuses. She did have low-grade fever last night. She has had a little bit of a cough. She denies any chest pain or shortness of breath. No history of COPD or asthma. She has been taking Mucinex [id number] without much improvement. No other complaint. PAST MEDICAL HISTORY Diagnosis Date Gestational diabetes With both pregnancies Goiter, nontoxic, multinodular Jermaine's thyroiditis Obesity PCOS (polycystic ovarian syndrome) Thyroid dysfunction in PAST SURGICAL HISTORY Procedure Laterality Date LAPAROSCOPY SURG CHOLECYSTECTOMY 01/2015 Jorge A Brandt ALLERGIES Betadine [Povidone-Iodine], Aloe, and Raspberry MEDICATIONS MOUNJARO 15 mg/0.5 mL pen injector INJECT 15 MG (0.5 ML) SUBCUTANEOUSLY EVERY WEEK levothyroxine (SYNTHROID) 137 mcg tablet Take 1 tablet by mouth once daily. MV-MN/IRON FUM/FA/OMEGA3,6,9#3 (WOMEN'S MULTI ORAL) Take by mouth once daily. Cholecalciferol, Vitamin D3, 1,000 unit cap Take 1,000 Units by mouth once daily. CALCIUM CARBONATE/VITAMIN D3 (CALCIUM CHEWABLE PLUS ORAL) Take 1,200 mg by mouth. doxycycline (VIBRA-TABS) 100 mg tablet Take 1 tablet by mouth two times a day for 7 days. TRULICITY 0.75 mg/0.5 mL pen injector INJECT 0.75 MG (0.5 ML) SUBCUTANEOUSLY EVERY WEEK (Patient not taking: Reported on 08/31/2024) metFORMIN (GLUCOPHAGE) 1,000 mg tablet 1000 MG ORALLY DAILY (Patient not taking: Reported on 08/31/2024) SYNTHROID 50 mcg tablet Take 1 tablet by mouth once daily. (Patient not taking: Reported on 07/27/2019 ) SYNTHROID 50 mcg tablet TAKE 1 TABLET EVERY DAY (Patient not taking: Reported on 07/27/2019) SYNTHROID 50 mcg tablet Take 1 tablet by mouth once daily. KYLE (Patient not taking: Reported on 07/27/2022) FAMILY HISTORY Adopted: Yes Family history unknown: Yes Social History Tobacco Use Smoking status: Never Smokeless tobacco: Never Substance Use Topics Alcohol use: No Comment: never drinks Drug use: No Review of Systems Constitutional: Positive for fever. Negative for chills. HENT: Positive for congestion, postnasal drip, sinus pressure and sinus pain. Negative for ear pain and sore throat. Respiratory: Positive for cough. Negative for shortness of breath. Cardiovascular: Negative for chest pain. Gastrointestinal: Negative for diarrhea and vomiting. Objective BP 124/80 Pulse 82 Temp 36.1 ?C (97 ?F) Resp 16 Wt 95.9 kg (211 lb 6.7 oz) SpO2 99% BMI 32.38 kg/m? Physical Exam Vitals and nursing note reviewed. Constitutional: General: She is not in acute distress. Appearance: Normal appearance. She is not toxic-appearing. HENT: Right Ear: Tympanic membrane and ear canal normal. Left Ear: Tympanic membrane and ear canal normal. Nose: Mucosal edema and congestion present. Right Sinus: Maxillary sinus tenderness present. Left Sinus: Maxillary sinus tenderness present. Mouth/Throat: Mouth: Mucous membranes are moist. Eyes: Conjunctiva/sclera: Conjunctivae normal. Cardiovascular: Rate and Rhythm: Normal rate and regular rhythm. Pulmonary: Effort: Pulmonary effort is normal. Breath sounds: Normal breath sounds. Skin: General: Skin is warm and dry. Neurological: Mental Status: She is alert. Assessment and Plan ASSESSMENT/PLAN: 1. Bacterial sinusitis - ICD9: 473.9, 041.9, ICD10: J32.9, B96.89 - Will begin treatment with Doxycycline - The patient should also be given OTC decongestants prn for the first 5-7 days of treatment. - Supportive care with plenty of fluids, rest, and analgesia prn. Diagnosis and treatment plan were discussed and questions were answered to the patient's satisfaction. Pt acknowledged understanding of concepts and follow up plan. Specific signs and symptoms that would indicate the need for higher level of care were discussed in detail warranting prompt ER evaluation. FLAVIO Mir [facility] 08-31-2024 History of Present illness Narrative This note was created using J. Hilburnriter. Subjective Mikey Oakes is a 44 year old female. HPI 44-year-old female presents for nasal congestion, sinus pressure, sinus pain, cough x 2 weeks. Patient states that 2 weeks ago she started getting sick. She has sinus congestion, nasal drainage, postnasal drainage, cough. She states last night she started getting a lot of sinus pain and pain into her teeth from her sinuses. She did have low-grade fever last night. She has had a little bit of a cough. She denies any chest pain or shortness of breath. No history of COPD or asthma. She has been taking Mucinex [id number] without much improvement. No other complaint. PAST MEDICAL HISTORY Diagnosis Date Gestational diabetes With both pregnancies Goiter, nontoxic, multinodular Jermaine's thyroiditis Obesity PCOS (polycystic ovarian syndrome) Thyroid dysfunction in PAST SURGICAL HISTORY Procedure Laterality Date LAPAROSCOPY SURG CHOLECYSTECTOMY 01/2015 Jorge A Brandt ALLERGIES Betadine [Povidone-Iodine], Aloe, and Raspberry MEDICATIONS MOUNJARO 15 mg/0.5 mL pen injector INJECT 15 MG (0.5 ML) SUBCUTANEOUSLY EVERY WEEK levothyroxine (SYNTHROID) 137 mcg tablet Take 1 tablet by mouth once daily. MV-MN/IRON FUM/FA/OMEGA3,6,9#3 (WOMEN'S MULTI ORAL) Take by mouth once daily. Cholecalciferol, Vitamin D3, 1,000 unit cap Take 1,000 Units by mouth once daily. CALCIUM CARBONATE/VITAMIN D3 (CALCIUM CHEWABLE PLUS ORAL) Take 1,200 mg by mouth. doxycycline (VIBRA-TABS) 100 mg tablet Take 1 tablet by mouth two times a day for 7 days. TRULICITY 0.75 mg/0.5 mL pen injector INJECT 0.75 MG (0.5 ML) SUBCUTANEOUSLY EVERY WEEK (Patient not taking: Reported on 08/31/2024) metFORMIN (GLUCOPHAGE) 1,000 mg tablet 1000 MG ORALLY DAILY (Patient not taking: Reported on 08/31/2024) SYNTHROID 50 mcg tablet Take 1 tablet by mouth once daily. (Patient not taking: Reported on 07/27/2019 ) SYNTHROID 50 mcg tablet TAKE 1 TABLET EVERY DAY (Patient not taking: Reported on 07/27/2019) SYNTHROID 50 mcg tablet Take 1 tablet by mouth once daily. KYLE (Patient not taking: Reported on 07/27/2022) FAMILY HISTORY Adopted: Yes Family history unknown: Yes Social History Tobacco Use Smoking status: Never Smokeless tobacco: Never Substance Use Topics Alcohol use: No Comment: never drinks Drug use: No Review of Systems Constitutional: Positive for fever. Negative for chills. HENT: Positive for congestion, postnasal drip, sinus pressure and sinus pain. Negative for ear pain and sore throat. Respiratory: Positive for cough. Negative for shortness of breath. Cardiovascular: Negative for chest pain. Gastrointestinal: Negative for diarrhea and vomiting. Objective BP 124/80 Pulse 82 Temp 36.1 C (97 F) Resp 16 Wt 95.9 kg (211 lb 6.7 oz) SpO2 99% BMI 32.38 kg/m Physical Exam Vitals and nursing note reviewed. Constitutional: General: She is not in acute distress. Appearance: Normal appearance. She is not toxic-appearing. HENT: Right Ear: Tympanic membrane and ear canal normal. Left Ear: Tympanic membrane and ear canal normal. Nose: Mucosal edema and congestion present. Right Sinus: Maxillary sinus tenderness present. Left Sinus: Maxillary sinus tenderness present. Mouth/Throat: Mouth: Mucous membranes are moist. Eyes: Conjunctiva/sclera: Conjunctivae normal. Cardiovascular: Rate and Rhythm: Normal rate and regular rhythm. Pulmonary: Effort: Pulmonary effort is normal. Breath sounds: Normal breath sounds. Skin: General: Skin is warm and dry. Neurological: Mental Status: She is alert. Assessment and Plan ASSESSMENT/PLAN: 1. Bacterial sinusitis - ICD9: 473.9, 041.9, ICD10: J32.9, B96.89 - Will begin treatment with Doxycycline - The patient should also be given OTC decongestants prn for the first 5-7 days of treatment. - Supportive care with plenty of fluids, rest, and analgesia prn. Diagnosis and treatment plan were discussed and questions were answered to the patient's satisfaction. Pt acknowledged understanding of concepts and follow up plan. Specific signs and symptoms that would indicate the need for higher level of care were discussed in detail warranting prompt ER evaluation. FLAVIO Mir documented in this encounter [facility] 07-27-2022 Instructions Olga Jordan APRN.GOLD BUYER - 07/27/2022 9:49 AM EDT [facility] PATIENT INFO SKIN INFECTION OVERVIEW Cellulitis is an infection of the skin and soft tissue of the skin. The infection is usually caused by bacteria that normally live on the skin, such as staphylococci ("Staph") or streptococci ("Strep"). The infection develops when there is a break in the skin, such as a wound or injury, which may be minor. This allows bacteria to enter the skin and grow, causing infection and swelling. Most cases of cellulitis are mild and heal completely with antibiotic treatment. However, the infection can become severe and cause a bodywide infection if left untreated. It is important to seek medical care promptly if you could have a skin infection. SKIN INFECTION RISK FACTORS Certain conditions increase the risk of developing cellulitis. These include: Recent injury to the skin (a wound, abrasion, cut, recent shaving, or injection drug use) Swelling of the skin due to radiation therapy Current skin infection, such as athlete's foot or impetigo Accumulation of fluid (edema) due to poor circulation, heart failure, liver disease, or past surgery to remove lymph nodes Being overweight Chronic skin conditions, such as eczema or psoriasis However, cellulitis can also develop in people who have no known risk factors. SKIN INFECTION SYMPTOMS Cellulitis -- The most common symptom of cellulitis is pain or tenderness. Other cellulitis symptoms can include swelling, warmth, and redness in a distinct area of skin. These symptoms usually worsen and the redness may expand over the course of a few days. The skin is usually smooth and shiny rather than raised or bumpy. Fever and chills are not common. The most common areas of the body for cellulitis to develop include the legs and the arms; it can also develop around the eye, on the abdominal wall, in the mouth, and around the anus. Other skin infections -- Other types of skin infections include abscesses, furuncles ("boils"), and carbuncles. These usually cause a collection of pus under the skin. Skin that is raised, reddened, tender, and pus-filled may be caused by a skin infection known as methicillin-resistant Staphylococcus aureus (MRSA). DO I NEED TO BE EXAMINED? There are many types and causes of skin infections, and it is important to know the most likely cause of the infection before beginning treatment. Using the wrong treatment could allow the infection to worsen. To ensure that the correct treatment is used, it is important to be evaluated by a healthcare provider. SKIN INFECTION TREATMENT Cellulitis treatment includes antibiotics as well as treatment of any underlying condition that led to the skin infection. Elevate the area -- Elevating the arm or leg above the level of the heart can help to reduce swelling and speed healing. Keep the area clean and dry -- It is important to keep the infected area clean and dry. You can shower or bathe normally, and pat the area dry with a clean towel. You can use a bandage or gauze to protect the skin, if needed. Do not use any antibiotic ointments or creams. Antibiotics -- Most people with cellulitis are treated with an antibiotic that is taken by mouth for one to two weeks. The "best" antibiotic depends upon your situation. If the infection is severe, you may need to be hospitalized and treated with antibiotics given into a vein (IV). It is important to take the antibiotic exactly as recommended and to finish the entire course of treatment. Skipping doses or ending treatment early could potentially allow the bacteria to become resistant and require longer treatment. Time to heal -- The swelling, warmth, and redness should begin to improve within one to three days after starting antibiotics, although these symptoms can persist for two weeks. If the reddened area becomes larger, more swollen, or more tender, call your healthcare provider. He or she may want to reexamine you to determine if further testing or an alternate antibiotic are needed. SKIN INFECTION PROGNOSIS In most cases, you will recover completely from an episode of cellulitis without any complications. If you have skin infection risk factors talk to your healthcare provider to determine if there are steps you can take to minimize the risk of infections in the future. documented in this encounter [facility] 07-27-2022 History of Present illness Narrative This note was created using J. Hilburnriter. Subjective Mikey Oakes is a 42 year old female. 42 year old female with PMH thyroid and DM presents for complaints of right arm. Acute onset Saturday States that she was sitting at her dentist office and when she got up she felt warmth and a sting to right lower arm. Think something bit me Endorses that is has since worsened. Area is larger. +increased redness + increased warmth Denies known trauma or injury. Denies fever or chills. Denies break in skin integrity Denies numbness or tingling Denies reduced or limited ROM. Morning sugars 95 Right hand doninant The history is provided by the patient. No lift operator was used. Rash This is a new problem. The current episode started in the past 7 days. The problem has been gradually worsening since onset. Location: right arm. The rash is characterized by redness and pain. It is unknown (?? insect) if there was an exposure to a precipitant. Pertinent negatives include no anorexia, congestion, cough, diarrhea, eye pain, facial edema, fatigue, fever, joint pain, nail changes, rhinorrhea, shortness of breath, sore throat or vomiting. Past treatments include nothing. The treatment provided no relief. There is no history of allergies, asthma, eczema or varicella. PAST MEDICAL HISTORY Diagnosis Date Gestational diabetes With both pregnancies Goiter, nontoxic, multinodular Jermaine's thyroiditis Obesity PCOS (polycystic ovarian syndrome) Thyroid dysfunction in PAST SURGICAL HISTORY Procedure Laterality Date LAPAROSCOPY SURG CHOLECYSTECTOMY 01/2015 Jorge A Brandt ALLERGIES Betadine [Povidone-Iodine], Aloe, and Raspberry MEDICATIONS levothyroxine (SYNTHROID) 137 mcg tablet Take 1 tablet by mouth once daily. TRULICITY 0.75 mg/0.5 mL pen injector INJECT 0.75 MG (0.5 ML) SUBCUTANEOUSLY EVERY WEEK metFORMIN (GLUCOPHAGE) 1,000 mg tablet 1000 MG ORALLY DAILY MV-MN/IRON FUM/FA/OMEGA3,6,9#3 (WOMEN'S MULTI ORAL) Take by mouth once daily. Cholecalciferol, Vitamin D3, 1,000 unit cap Take 1,000 Units by mouth once daily. CALCIUM CARBONATE/VITAMIN D3 (CALCIUM CHEWABLE PLUS ORAL) Take 1,200 mg by mouth. sulfamethoxazole-trimethoprim (BACTRIM DS) 800-160 mg per tablet Take 1 tablet by mouth twice daily for 7 days. SYNTHROID 50 mcg tablet Take 1 tablet by mouth once daily. (Patient not taking: Reported on 07/27/2019 ) SYNTHROID 50 mcg tablet TAKE 1 TABLET EVERY DAY (Patient not taking: Reported on 07/27/2019) SYNTHROID 50 mcg tablet Take 1 tablet by mouth once daily. KYLE (Patient not taking: Reported on 07/27/2022) FAMILY HISTORY Adopted: Yes Family history unknown: Yes Social History Tobacco Use Smoking status: Never Smokeless tobacco: Never Substance Use Topics Alcohol use: No Comment: never drinks Drug use: No Review of Systems Constitutional: Negative for activity change, appetite change, fatigue and fever. HENT: Negative for congestion, rhinorrhea and sore throat. Eyes: Negative for pain. Respiratory: Negative for apnea, cough, chest tightness and shortness of breath. Cardiovascular: Negative for chest pain, palpitations and leg swelling. Gastrointestinal: Negative for anorexia, constipation, diarrhea and vomiting. Musculoskeletal: Negative for arthralgias, back pain, gait problem, joint pain and joint swelling. Skin: Positive for rash. Negative for nail changes. Allergic/Immunologic: Negative for environmental allergies, food allergies and immunocompromised state. Neurological: Negative for dizziness and facial asymmetry. Hematological: Negative for adenopathy. Does not bruise/bleed easily. Psychiatric/Behavioral: Negative for agitation and behavioral problems. Objective BP 118/80 Pulse 66 Temp 36.6 C (97.9 F) (Tympanic) Resp 18 Wt 124.6 kg (274 lb 9.6 oz) SpO2 98% BMI 42.06 kg/m Physical Exam Vitals and nursing note reviewed. Constitutional: General: She is not in acute distress. Appearance: Normal appearance. She is normal weight. She is not ill-appearing, toxic-appearing or diaphoretic. HENT: Head: Normocephalic and atraumatic. Right Ear: Ear canal and external ear normal. Left Ear: Ear canal and external ear normal. Nose: Nose normal. No congestion or rhinorrhea. Mouth/Throat: Mouth: Mucous membranes are moist. Pharynx: No oropharyngeal exudate or posterior oropharyngeal erythema. Eyes: General: Right eye: No discharge. Left eye: No discharge. Extraocular Movements: Extraocular movements intact. Conjunctiva/sclera: Conjunctivae normal. Pupils: Pupils are equal, round, and reactive to light. Cardiovascular: Rate and Rhythm: Normal rate and regular rhythm. Pulses: Normal pulses. Heart sounds: Normal heart sounds. No murmur heard. No friction rub. Pulmonary: Effort: Pulmonary effort is normal. No respiratory distress. Breath sounds: Normal breath sounds. No stridor. No wheezing, rhonchi or rales. Chest: Chest wall: No tenderness. Abdominal: General: Abdomen is flat. There is no distension. Palpations: Abdomen is soft. There is no mass. Tenderness: There is no abdominal tenderness. There is no right CVA tenderness, left CVA tenderness, guarding or rebound. Hernia: No hernia is present. Musculoskeletal: General: No swelling, tenderness, deformity or signs of injury. Normal range of motion. Cervical back: Normal range of motion and neck supple. No rigidity. Right lower leg: No edema. Left lower leg: No edema. Lymphadenopathy: Cervical: No cervical adenopathy. Skin: General: Skin is warm and dry. Coloration: Skin is not jaundiced or pale. Findings: No bruising, erythema, lesion or rash. Comments: Right forearm with diffuse erythema, warmth and mild swelling. Extends proximal side up to AC No abscess. NO creptius No streaking RP + 2 B/L +neuro +sensation Neurological: General: No focal deficit present. Mental Status: She is alert and oriented to person, place, and time. Cranial Nerves: No cranial nerve deficit. Sensory: No sensory deficit. Motor: No weakness. Coordination: Coordination normal. Gait: Gait normal. Psychiatric: Mood and Affect: Mood normal. Behavior: Behavior normal. Thought Content: Thought content normal. Judgment: Judgment normal. Assessment and Plan ASSESSMENT/PLAN: 1. Cellulitis of right arm - ICD9: 682.3, ICD10: L03.113 - Begin treatment with Bactrim - No lymphangetic streaking, this was defined for patient to watch for and to seek medical care immediately if appears - Area of cellulitis defined with pen, seek further attention if this area continues to enlarge - Follow up for recheck in two days - Discussed red flags. Olga Jordan APRN.OSMEL documented in this encounter [facility] Evaluation + Plan note Future Appointments Appointment Date:03/17/2025 11:00:00 AM Scheduled Provider:DESI RICHARDSON MD Location: [place] Appointment Type:[facility] OB Routine Follow Up Diagnostic Tests PendingHPV Screen, DNA Probe 03/04/25 Future Scheduled TestsUrine Culture 03/04/25 [facility] Evaluation + Plan note Future Appointments Appointment Date:03/17/2025 11:00:00 AM Scheduled Provider:DESI RICHARDSON MD Location:[facility] Appointment Type: OV OB Routine Follow Up Diagnostic Tests PendingVaricella Zoster Antibody 03/08/25Rapid Plasma Reagin Test 03/08/25Rubella Antibody 03/08/25 Future Scheduled TestsUrine Culture 03/04/25 [facility] Evaluation note No assessment information availa [facility] Work Phone: Evaluation note Diagnosis Cellulitis of right arm- Primary Cellulitis and abscess of upper arm and forearm [facility] Diagnosis Onset Date Resolution Status Physical exam, pre-employment acute [facility] Work Phone: Evaluation note* Diagnosis Bacterial sinusitis- Primary Unspecified sinusitis (chronic) [facility] Diagnosis Onset Date Resolution Status Admit Date Vitamin D deficiency acute May 12, 2025 12:12pm Diabetes chronic May 12, 2025 12:12pm Hypothyroidism (acquired) chronic May 12, 2025 12:12pm [facility] Work Phone: Hospital course Narrative No data available for this section [facility] Hospital Discharge instructions No data available for this section [facility] Progress note No data available for this section [facility] Prowpess note Author Ton Peña [facility] Note Date/Time May 12, 2025 1:17p m [facility] [address] [place] [address] [place] [address] OFFICE VISIT Date of Service: 05/12/25 MR#: [id number] Acct: [id number] Name: MIKEY OAKES Rep #: [id number] : 1980 Provider: FLAVIO Grossman Age/Sex: 44/F Location: [facility] Status: Signed Intake Vital Signs 08/20/24 10:01 05/12/25 12:37 Height 5 ft 8 in 5 ft 8 in Weight: 214 lb 199 lb 2 oz BMI 32.5 30.2 BP 110/68 126/78 H Blood Pressure Location Lt brachial Lt brachial Position Sitting Sitting Respiration 14 16 Pulse 71 70 Pulse Source Monitor Monitor Temp 98.1 F 97.2 F L Temp Source Temporal Temporal Pulse Oximetry (%) 99 99 Oxygen Delivery Method room air room air Intake Visit Reasons: MED FOLLOW UP Chief Complaint: fu Stamp Presser Required: No Accompanied by: Self Is patient in pain?: No Allergies adhesive tape Allergy (Intermediate, Verified 05/12/25 12:30) red rash raspberry Allergy (Intermediate, Verified 05/12/25 12:30) Hives povidone-iodine (From Betadine) Allergy (Unknown, Verified 05/12/25 12:30) Unknown soap (From Betadine) Allergy (Unknown, Verified 05/12/25 12:30) Unknown Medications ?Medication ?Instructions ?Recorded ?Confirmed ?Type calcium carbonate 600 mg PO DAILY 08/06/1907/29 History cholecalciferol (vitamin D3) 25 25 mcg PO DAILY 05/12/25 History mcg (1,000 unit) tablet multivitamin (Daily Multi-Vitamin 1 tab PO DAILY 09/1705/12/25 History tablet) levothyroxine 137 mcg tablet 137 mcg PO DAILY #90 tabs 08/06/23 05/12/25 Rx tirzepatide 12.5 mg/0.5 mL 12.5 mg (0.5 mL) subcut QWE EK #2 mL 05/12/25 05/12/25 Rx subcutaneous pen injector (Gideon) Nurse's Note: needs refills [facility] Medical History Diabetes Raynaud phenomenon Obesity 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 Gestational diabetes mellitus (GDM) Hypothyroidism (acquired) Polycystic ovarian disease Surgical History H/O wisdom tooth extraction Hx of cholecystectomy Family History Other Adopted Social History adopted: Yes household members: spouse and children number of children: 3 current occupational status: employed 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 She has no concerns or complaints at this time. Patient used to see endocrinology but was transferred back to us as her A1C had been doing extremely well on the Mounjaro and felt she was fine to monitor here. She does not check her sugar She states that her diet is good She is getting regular exercise walking regularly with occasional swimming She does see eye doctor regularly No nicotine No ETOH Very little caffeine intake. She is compliant with her thyroid medication taking this "at the crack of rachel away from her other medications / intake) ROS Const Constitutional: No body ache, excessive sweating, fatigue, fever(s), frequent falls, headache(s), snoring, weakness, weight change, sleep problems or change in appetite Eyes Eyes: No blurry vision, change in vision, eye pain or Light sensitivity ENT ENT: No abnormal hearing, ear or mastoid pain, tinnitus, nasal congestion, headache(s), neck pain or sore throat Resp Respiratory: No cough, shortness of breath, snoring or wheezing Cardio Cardiology: No chest pain at rest, chest pain with exertion, excessive sweating,shortness of breath, dyspnea on exertion, lightheadedness, orthopnea or palpitations Gastro GI: No abdominal pain, change in bowel habits, constipation, cramping, diarrhea,nausea/dyspepsia or vomiting Genitourinary-Female: No burning urination, painful urination, urinary incontinence, urinary frequency, blood in urine, abnormal periods or pelvic pain Musc Musculoskeletal: No abnormal gait, joint pain, back pain, limited range of motion, neck pain, numbness, stiffness, tingling or Arthritis Skin Skin: No dry skin, redness, lesions, itchy eyes, rash or wounds Neuro Neurology: No abnormal gait, abnormal hearing, abnormal speech, dizziness, weakness, frequent falls, headache(s), memory loss, numbness or tingling Psych Psychiatric: No anxiety, No change in appetite, No depression, No memory loss and No Thoughts of harming yourself/Others Endo Endocrine: No cold intolerance, excessive sweating, fatigue, flushing, heat intolerance, increased thirst/drinking, increased hunger or weight change Aller/Imm Allergy/Immunologic: No itchy eyes, seasonal allergy symptoms, hives or wheezing Vicente/Lymp Hematologic/Lymphatic: No easy bleeding, easy bruising or enlarged lymph nodes Exam Const General: cooperative, healthy appearing, comfortable, no acute distress, well developed and well groomed Nutritional Appearance: overweight Orientation: alert, awake and oriented x3 Limitations: mental status not altered [facility] Head: normocephalic and atraumatic Ears: hearing grossly normal bilaterally Neck Neck: no lymphadenopathy, supple and nontender Lymphatic: no lymphadenopathy noted Resp Effort & Inspection: normal respiratory effort, able to speak in complete sentences, symmetric chest movement, normal respiratory pattern, no audible wheezes and no cough Auscultation: Bilateral: Clear to Auscultation Cardio Rate: regular rate Rhythm: regular rhythm Heart Sounds: S1 normal, S2 normal and no murmurs Pulses: radial pulses present bilaterally 2+ Skin Rashes: no rashes Neuro General: patient alert, patient awake, patient oriented x3, gait normal and moves all extremities Cognition: normal cognition Speech: speech normal Gait: normal gait Extrem General: no pedal edema and no edema Psych Appearance: grossly normal Mental Status: mental status grossly normal Mood: congruent mood Affect: normal affect Speech and Movement: speech and movement normal Attitude: cooperative Coding Level of Care Code Off vis,est,level 3 Diagnoses Type 2 diabetes mellitus without complication, without long-term current use of insulin E11.9 Diabetes mellitus type: type 2 Diabetes mellitus tank terminal gauger insulin use: without [facility] use Diabetes mellitus complication status: without complication Hypothyroidism (acquired) E03.9 Vitamin D deficiency E55.9 Assessment and Plan Assessment and Plan (1) Diabetes: Status: Chronic Qualifiers: Diabetes mellitus type: type 2 Diabetes mellitus tank terminal gauger insulin use:without [facility] use Diabetes mellitus complication status: without complication Qualified Code(s): E11.9 - Type 2 diabetes mellitus without complications Plan: Patient's last A1c a year ago was 5.3. Once again she used to see endocrinologyhowever they felt that she could easily be followed up with her PCP since she had lost the weight and her A1c had fallen dramatically. At this time patient continues to be compliant with regular exercise and really trying to monitor hereating habits. She does not check her sugar regularly. She does have regular eye exams. At this point again patient feels well without any concerns or complaints. Can continue with her Mounjaro and she does have her annual follow-up in 3 months. (2) Hypothyroidism (acquired): Status: Chronic Comment: Jermaine's Plan: Patient's last TSH was 1.680 and therefore has been very well-controlled. She has not had any signs or symptoms that would suggest the thyroid has recently become abnormal. She is compliant with her medications she does take them appropriately with a glass of water first thing in the morning away from her other medications or other intake. At this point again we will go ahead and have her labs done prior to her next visit. (3) Vitamin D deficiency: Status: Acute Plan: Patient is currently only taking 1000 IUs daily and her last level was very lowat 20 and therefore I really think that she can increase this. I will have her go ahead and take 3000 to 4000 units daily. We are going to check her numbers in 3 months. Could even consider doing 50,000 units weekly Orders: Orders CBC W/Diff, Automated Today E11.9 - Type 2 diabetes mellitus without complications Comprehensive Metabolic Profil Today E11.9 - Type 2 diabetes mellitus without complications Hemoglobin A1c Today E11.9 - Type 2 diabetes mellitus without complications Lipid Profile Today E11.9 - Type 2 diabetes mellitus without complications, E66.09 - Other obesity due to excess calories, Z68.34 - Body mass index [BMI] 34.0-34.9, adult Thyroid Stim Hormone (TSH) Today E03.9 - Hypothyroidism, unspecified Vitamin D,25 Hydroxy Today E55.9 - Vitamin D deficiency, unspecified Medications: Refilled tirzepatide (Mounjaro) 12.5 mg (0.5 mL) subcut QWEEK 2 mL 3RF E11.9 - Type 2 diabetes mellitus without complications Plan Details Follow Up: 3 Months 05/12/25 1317 <Electronically signed by Ton MUNIZ> Date _ Ton Borjas Signature: Date (if applicable) CC: ~ [facility] Work Phone: Reason for referral (narrative)No reason for referral information availableMercy [facility] Work Phone: Summary Purpose Family History No Family History Records Found Relationship Condition Age at Onset Recorded Date/T tereza Not Specified Adopted Unknown Advance Directives No Advanced Directives Records Found Advance Directive Response Recorded Date/ Time Living Will No August 06 9 1:11pm Power of Integration Director No August 06 019 1:11pm Chief Complaint and Reason for Visit Chief Complaint PE PHYSICAL/[place] E ORDERS Reason for Visit Physical exam, pre-e mployment Chief Complaint Admit Date MED FOLLOW UP May 12, 2025 12:12 pm Reason for Visit Admit Date Vitamin D deficiency May 12, 2025 12:1 2pm Diabetes May 12, 2025 12:12 pm Hypothyroidism (acquired) May 12, 2025 12:12pm Additional Source Comments INFORMATION SOURCE (unrecogn ized section and content) DATE CREATED AUTHOR 04/24/2018 [facility] DATE CREATED AUTHOR AUTHOR'S ORGANIZ ATION 05/02/2019 [facility] ([place]) DATE CREATED AUTHOR AUTHOR'S ORGANIZ ATION 08/31/2024 [facility] DATE CREATED AUTHOR AUTHOR'S ORGANIZ ATION 03/12/2025 [facility] DATE CREATED AUTHOR AUTHOR'S ORGANIZ ATION 08/25/2025 [facility] Goals (unrecognized section and content) Goals may be documented in a n alternate sectionGoals may be documented in an alternate section No data available for this section No data available for this sectionGoals may be documented in an alternate section Source Comments (unrecognize d section and content) In the event this informatio n is protected by the Federal Confidentiality of Alcohol and Drug Abuse Patient Records regulations: The Federal rules restrict any use of the information to criminally investigate or prosecute any alcohol or drug abuse patient.[facility] the event this information is protected by the Federal Confidentiality of Alcohol and Drug Abuse Patient Records regulations: The Federal rules restrict any use of the information to criminally investigate or prosecute any alcohol or drug abuse patient.[facility] Reason for Visit (unrecogniz ed section and content) Reason Comments insect bite on right forearm X 2 days Reason Comments Sinus Problem sinus pressure, drai nage, cough, headache and fever x 2 weeks Care Teams (unrecognized sec tion and content) Team Status: Active Member Role Status Dates No Primary Care Physician Family Provider Active Dr. Edil Dean MD Primary Care Provider Active Team Status: Inactive Member Role Status Dates Dr. Edil Dean MD Primary Care Provider, Referri ng Provider Active Yeison Lama PA, PA Attending Provider Active Team Status: Inactive Member Role Status Dates Dr. Edil Dean MD Primary Care Provider Active Dr. Katie Lenz MD Attending Provider, Referring Provi jessica Active Wheel Assembler Relationship Specialty Start Date End Date Edil Dean MD [address] [address] PCP - General Internal Medicine 08/31/24 Team Status: Active Member Role/Relationship Status Dates No Primary Care Physician Family Provider Active Dr. Edil Dean MD Primary Care Provider Active Team Status: Inactive Member Role/Relationship Status Dates Dr. Edil Dean MD Primary Care Provider Active Start: May 12, 2025 End: May 12, 2025 Dr. Edil Dean MD Referring Provider Active Start: May 12, 2025 End: May 12, 2025 Ton MUNIZ, PA Attending Provider Active St art: May 12, 2025 End: May 12, 2025 FOR RECORDS PERTAINING TO PATIENTS WHO ARE OR HAVE BEEN ENROLLED IN A CHEMICAL DEPENDENCY/SUBSTANCEABUSE PROGRAM, SOME INFORMATION MAY BE OMITTED. This clinical summary was aggregated from multiple sources. Caution should be exercised in using it in the provision of clinical care. This summary normalizes information from multiple sources, and as a consequence, information in this document may materially change the coding, format and clinical context of patient data. In addition, data may be omitted in some cases. CLINICAL DECISIONS SHOULD BE BASED ON THE PRIMARY CLINICAL RECORDS. [employer] provides no warranty or guarantee of the accuracy or completeness of information in this document.
[2025-08-27 10:45] LABS: AST(SGOT) 14 U/L (<=31); Alanine Aminotransfer ALT/SGPT 9 U/L (<=34); Albumin, Serum 4.3 g/dL (3.5-5.0); Alkaline Phosphatase 67 U/L (35-104); Anion Gap 10 (5-15); BUN 9 mg/dL (4-19); BUN/Creat Ratio 14.8 RATIO (10-20); Calcium,Total 9.4 mg/dL (7.6-11.0); Carbon Dioxide 24.5 mmol/L (21.0-32.0); Chloride 105 mmol/L (98-108); Cholesterol 136 mg/dL (<=200); Globulin 3.0 g/dL (2.2-4.2); Glucose 85 mg/dL (70-99); Low Density Lipoprotein Calc. 74 mg/dL; Potassium 4.1 mmol/L (3.3-5.1); Triglycerides 48 mg/dL; Very Low Density Lipoprotein 10 mg/dL (5-40); Vitamin D,25 Hydroxy 24.1 ng/mL (30-100); cholesterol:hdl ratio screen 2.65
== END | disposition home or self-care (01) ==
LOC: MTLAB 09:24
PROVIDERS: PCP Internal Medicine; Referring Provider Physician Assistant; Visit Provider Physician Assistant
DX: E11.9 Type 2 diabetes mellitus without complications (principal); E66.09 Other obesity due to excess calories; Z68.34 Body mass index [BMI] 34.0-34.9, adult; E55.9 Vitamin D deficiency, unspecified; E03.9 Hypothyroidism, unspecified
CPT/HCPCS: 36415; 80053; 80061; 82306; 83036; 84443; 85025

== ENCOUNTER → 2025-10-15 | Outpatient (CLI) | payer BC, SELFPAY ==
--- NOTE | 2025-10-15 10:30 | BI_ITS ---
EXAM: SCRN MAMM (CAD)W/ARTEMIO BILAT DATE: 10/15/2025 CLINICAL HISTORY: F, Age 45 y/o , SCREENING BREAST CANCER TECHNIQUE: Procedure Code: [id number] Modality: MG Procedure: SCRN MAMM (CAD)W/ARTEMIO BILAT COMPARISON: Baseline exam FINDINGS: TISSUE DENSITY: The breasts are heterogeneously dense, which may obscure small masses. Bilateral Breast Mammographic Findings: No significant masses, calcifications or other abnormalities are identified. BI/SCRN MAMM (CAD)W/ARTEMIO BILAT IMPRESSION: No mammographic evidence of malignancy. OVERALL FINAL ASSESSMENT BI-RADS 1: NEGATIVE. RECOMMENDATION: Routine annual follow-up in 1 Year Additional Recommendation none A letter with findings and recommendations will be mailed to the patient. Reading Location: [id number]
== END | disposition home or self-care (01) ==
LOC: OPBI 10:15
PROVIDERS: PCP Internal Medicine; Referring Provider Nurse Practitioner Family; Visit Provider Nurse Practitioner Family
DX: Z12.31 Encounter for screening mammogram for malignant neoplasm of breast (principal)
CPT/HCPCS: 77063; 77067